=== PATIENT | female | born 1990 | race Hispanic/Latino ===

== ENCOUNTER 2022-02-11 09:01 | Emergency (ER) | payer SELFPAY ==
[2022-02-11 10:01] LABS: Urine Blood 2+ (Negative); Urine Glucose Negative (Negative); Urine Protein Negative (Negative); Urine Specific Gravity >=1.030 (1.005-1.030); Urine pH 6.5 (5.0-7.0)
--- NOTE | 2022-02-11 11:45 | RAD REPORT ---
EXAM DESCRIPTION: CT - Stone Protocol - 02/11/2022 11:07 am CLINICAL HISTORY: Flank pain, kidney stone suspected COMPARISON: <Comparisons> TECHNIQUE: Axial 3 mm thick images were obtained without oral or IV contrast. The [id number] span s the entirety of the system including uppermost abdomen and lung bases. All CT scans are performed using dose optimization technique as appropriate and may include automated exposure control or mA/KV adjustment according to patient size. FINDINGS: No hydronephrosis is present and no obstructing ureteral calculi. No suspicious renal mass es. Isodense masses and pyelonephritis are not excluded on a stone protocol CT scan. No significant a drenal finding. No urinary bladder suspicious finding. Lobulated multi fibroid uterus is present. No primary ovarian process seen. Imaged portions of the liver, spleen and pancreas show no suspicious findings on non-contrast imaging . No gallbladder or biliary tree abnormality identified. No suspicious bowel findings. Appendix is normal. Sigmoid colon is redundant with moderate stool volu me. No hernia, mass or bulky lymphadenopathy noted. No free air, free fluid or inflammatory stranding. No significant bony abnormality. IMPRESSION: No hydronephrosis, obstructing calculus or acute finding. Lobulated multi fibroid uterus with no primary ovarian process seen. Follow-up outpatient sonography of the uterus can be obtained as warranted. Isodense masses and pyelonephritis are not excluded on stone protocol technique.
--- NOTE | 2022-02-11 11:49 | ER ---
Nurse's Notes [facility] Name: Laureen Haji Age: 31 yrs Sex: Female : 1990 Arrival Date: 02/11/2022 Time: 09:02 Bed Waiting Private MD: Diagnosis: UTI/ Urinary tract infection, site not specified Presentation: 02/11 09:53 Chief complaint: Patient states: LLQ to left low back pain with burning with urination jl7 x 3 days. Coronavirus screen: At this time, the client does not indicate any symptoms associated with coronavirus-19. Ebola Screen: No symptoms or risks identified at this time. Initial Sepsis Screen: Does the patient meet any 2 criteria? No. Patient's initial sepsis screen is negative. Does the patient have a suspected source of infection? No. Patient's initial sepsis screen is negative. Risk Assessment: Do you want to hurt yourself or someone else? Patient reports no desire to harm self or others. Onset of symptoms was February 09, 2022. 09:53 Method Of Arrival: Ambulatory jl7 09:53 Acuity: CHIDI 3 jl7 Triage Assessment: 09:55 General: Appears in no apparent distress. uncomfortable, Behavior is calm, cooperative, jl7 appropriate for age. Pain: Complains of pain in suprapubic area and left lower quadrant Pain currently is 8 out of 10 on a pain scale. 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 - Social history:: Smoking status: Patient denies any tobacco usage or history of. Vital Signs: 09:53 BP 131 / 109; Pulse 95; Resp 17; Temp 98.4; Pulse Ox 100% on R/A; Weight 99.79 kg; jl7 Height 5 ft. 5 in. (165.10 cm); Pain 10; 09:53 Body Mass Index 36.61 (99.79 kg, 165.10 cm) jl7 ED Course: 09:02 Patient arrived in ED. as 09:16 Claude Hinojosa PA is PHCP. [facility] 09:16 Gus Stephen MD is Attending Physician. [facility] 09:55 Triage completed. jl7 09:55 Arm band placed on right wrist. jl7 11:09 CT Stone Protocol In Process Unspecified. EDMS 12:20 Wilma Pike, RN is Primary Nurse. iw Administered Medications: No medications were administered Outcome: 11:48 Discharge ordered by . m 12:23 Patient left the ED. iw Addendum: 02/14/2022 18:06 Addendum: Culture Results: Positive urine culture. Bacteria is resistant to, has a a5 intermediate sensitivity, or is not tested against prescribed antibiotics. Report given to MARIAM for further evaluation and then to diet clerk for follow up with patient. 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 Signatures: Dispatcher [employer] EDMS Claude Hinojosa PA PA [facility] Shanti Hanson as Wilma Pike, RN RN Valencia Zamora, RN RN aa5 Shabana Rice, RN RN jl7
--- NOTE | 2022-02-11 11:49 | EDPHYS ---
Physician Documentation [facility] Name: Laureen Haji Age: 31 yrs Sex: Female : 1990 Arrival Date: 02/11/2022 Time: 09:02 Bed Waiting Private MD: ED Physician Gus Stephen HPI: 02/11 09:45 This 31 yrs old Female presents to ER via Unassigned with complaints of jmm Urinary Problem, Flank Pain, Fever. 09:45 The patient presents with urinary symptoms. Onset: The symptoms/episode began/occurred jmm gradually. Modifying factors: The symptoms are alleviated by nothing, the symptoms are aggravated by nothing. Associated signs and symptoms: Pertinent positives: nausea. Patient states pain has intensified today. Increased urinary frequency pain, gross hematuria, flank pain. 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 - Social history:: Smoking status: Patient denies any tobacco usage or history of. ROS: 09:45 Cardiovascular: Negative for chest pain, palpitations, and edema, Respiratory: Negative jmm for shortness of breath, cough, wheezing, and pleuritic chest pain. 09:45 Constitutional: Positive for body aches, chills, fever. 09:45 Abdomen/GI: Positive for abdominal pain, nausea. 09:45 Back: Positive for flank pain. 09:45 : Positive for urinary symptoms, flank pain, urinary frequency, small amounts, burning with urination, difficulty urinating. 09:45 All other systems are negative. Exam: 09:45 Constitutional: This is a well developed, well nourished patient who is awake, alert, jmm and in no acute distress. Head/Face: atraumatic. Eyes: EOMI, no conjunctival erythema appreciated ENT: Moist Mucus Membranes Neck: Trachea midline, Supple Chest/axilla: Normal chest wall appearance and motion. Cardiovascular: Regular rate and rhythm. No edema appreciated Respiratory: Normal respirations, no respiratory distress appreciated Abdomen/GI: Non distended, soft Back: Normal ROM Skin: General appearance color normal MS/ Extremity: Moves all extremities, no obvious deformities appreciated, no edema noted to the lower extremities Neuro: Awake and alert Psych: Behavior is normal, Mood is normal, Patient is cooperative and pleasant Vital Signs: 09:53 BP 131 / 109; Pulse 95; Resp 17; Temp 98.4; Pulse Ox 100% on R/A; Weight 99.79 kg; 7 Height 5 ft. 5 in. (165.10 cm); Pain 07/14; 09:53 Body Mass Index 36.61 (99.79 kg, 165.10 cm) 7 MDM: 09:45 Patient medically screened. [facility] 11:46 Data reviewed: vital signs, nurses notes. Counseling: I had a detailed discussion with [facility] the patient and/or guardian regarding: the historical points, exam findings, and any diagnostic results supporting the discharge/admit diagnosis, lab results, radiology results, the need for outpatient follow up, to return to the emergency department if symptoms worsen or persist or if there are any questions or concerns that arise at home. ED course: Patient advised to follow up with pcp and otherwise given strict return precautions. patient understood and agrees with the plan of care. . 02/11 09:47 Order name: Urine Culture [facility] 02/11 10:01 Order name: Urine Dipstick-Ancillary; Complete Time: 10:07 [facility] 02/11 09:47 Order name: Urine Dipstick-Ancillary (obtain specimen); Complete Time: 10:02 [facility] 02/11 09:47 Order name: Urine Test (obtain specimen); Complete Time: 10:02 [facility] 02/11 09:47 Order name: CT Stone Protocol; Complete Time: 11:46 [facility] Administered Medications: No medications were administered Disposition: 13:54 Co-signature as Attending Physician, Gus Stephen MD I agree with the assessment and kdr plan of care. Disposition Summary: 02/11/22 11:48 Discharge Ordered Location: Home [facility] Condition: Stable [facility] Diagnosis - UTI/ Urinary tract infection, site not specified [facility] Followup: [facility] - With: Private Physician - When: 2 - 3 days - Reason: Recheck today's complaints, Continuance of care, Re-evaluation by your physician Discharge Instructions: - Discharge Summary Sheet jmm - Urinary Tract Infection, Adult jmm Forms: - Medication Reconciliation Form jmm - Thank You Letter jmm - Antibiotic Education jmm - Prescription Opioid Use jmm - Work release form iw Prescriptions: - cefpodoxime 200 mg Oral Tablet - take 1 tablet by ORAL route every 12 hours for 10 days with food; 20 tablet; adam Refills: 0, Product Selection Permitted Signatures: Dispatcher [employer] Gus Tucker MD MD kdr Mickail, Joel, PA PA jmm Leal, Jahala, RN RN jl7
[2022-02-11 12:32] VITALS: BP 131/109; TEMP 98.4; O2SAT 100
== END 2022-02-11 12:23 | disposition home or self-care (01) ==
LOC: ER 09:01
DX: N39.0 Urinary tract infection, site not specified (principal); Z87.442 Personal history of urinary calculi
CPT/HCPCS: 74176; 76377; 81003; 87077; 87086; 87088; 87186; 99282

== ENCOUNTER 2022-04-30 17:04 | Emergency (ER) | payer BC ==
[2022-04-30 17:51] LABS: Urine Blood 1+ (Negative); Urine Glucose Negative (Negative); Urine Protein Negative (Negative); Urine Specific Gravity 1.025 (1.005-1.030); Urine pH 6.5 (5.0-7.0)
[2022-04-30 17:59] LABS: Absolute Lymphocytes (CBC) 2.2 K/uL (0.7-4.9); Hematocrit 43.7 % (36.0-45.0); Lymphocytes % 30.6 % (15.3-44.8); MCV 82.7 fL (80-100); MPV 8.1 fL (7.6-11.3); RBC Red Blood Cell Count 5.29 M/uL (3.86-4.86)
[2022-04-30 18:05] LABS: Urine RBC <5 /HPF (None Seen)
[2022-04-30 18:06] LABS: Urine Bacteria Loaded /HPF (<20)
[2022-04-30 18:07] LABS: Urine Specific Gravity/Preg 1.025 (1.005-1.030)
[2022-04-30 18:10] LABS: Albumin 4.1 g/dL (3.4-5.0); Bilirubin Total 0.3 mg/dL (0.2-1.0); Potassium 3.8 mmol/L (3.5-5.1); Protein, Total 8.1 g/dL (6.4-8.2)
[2022-04-30] MEDS ORDERED: MORPHINE 4 MG/ML SYR ONE (18:38)
[2022-04-30] MEDS ORDERED: ONDANSETRON 4 MG/2 ML VIAL ONE (18:38)
--- NOTE | 2022-04-30 19:04 | RAD REPORT ---
EXAM DESCRIPTION: CTAbdomen Pelvis W Contrast - 04/30/2022 6:54 pm CLINICAL HISTORY: Abdominal pain. left side abdomen pain COMPARISON: No comparisons TECHNIQUE: Biphasic CT imaging of the abdomen and pelvis was performed with 100 ml non-ionic IV cont rast. All CT scans are performed using dose optimization technique as appropriate and may include automated exposure control or mA/KV adjustment according to patient size. FINDINGS: The lung bases are clear. The liver, spleen, pancreas, adrenal glands and kidneys are within normal limits. No bowel obstruction, free air, free fluid or abscess. The appendix is normal. No evidence of signi ficant lymphadenopathy. Mild urinary bladder wall thickening suspected. Moderate stool is retained th roughout the colon. No suspicious bony findings. IMPRESSION: No acute intra-abdominal or pelvic finding. Moderate stool is retained throughout the colon. Possible urinary bladder wall thickening. Suggest correlation for possible cystitis.
[2022-04-30] MEDS ORDERED: CEFTRIAXONE 1000 MG/VIAL ONE (19:32)
--- NOTE | 2022-04-30 19:42 | ER ---
Nurse's Notes [facility] Name: Laureen Haji Age: 31 yrs Sex: Female : 1990 Arrival Date: 04/30/2022 Time: 17:08 Bed 23 Private MD: Mariela Holley K Diagnosis: UTI/ Urinary tract infection, site not specified;Abdominal pain, unspecified Presentation: 04/30 17:27 Chief complaint: Patient states: pain started on LLQ and now radiates up under her left iw breast , feels very bloated, has hx of UTI's and H. Pylori, also has been nauseous, symptoms started Thursday night. Coronavirus screen: At this time, the client does not indicate any symptoms associated with coronavirus-19. Ebola Screen: Patient negative for fever greater than or equal to 101.5 degrees Fahrenheit, and additional compatible Ebola Virus Disease symptoms Patient denies exposure to infectious person. Patient denies travel to an Ebola-affected area in the 21 days before illness onset. No symptoms or risks identified at this time. Initial Sepsis Screen: Does the patient meet any 2 criteria? No. Patient's initial sepsis screen is negative. Does the patient have a suspected source of infection? No. Patient's initial sepsis screen is negative. Risk Assessment: Do you want to hurt yourself or someone else? Patient reports no desire to harm self or others. Onset of symptoms was April 27, 2022. 17:27 Method Of Arrival: Ambulatory iw 17:27 Acuity: CHIDI 3 iw Historical: - Allergies: 17:29 No Known Allergies; iw - PMHx: 17:29 Hydrocephalus; Kidney stones; UTI; iw - PSHx: 17:29 Adenoid excision; section; Tonsillectomy; iw 17:30 tubal ligation; iw - Immunization history:: Adult Immunizations up to date. Screenin:29 Abuse screen: Denies threats or abuse. Denies injuries from another. Nutritional lg3 screening: No deficits noted. Tuberculosis screening: No symptoms or risk factors identified. Fall Risk None identified. Assessment: 19:29 General: Appears in no apparent distress. comfortable, Behavior is calm, cooperative. lg3 Pain: Complains of pain in anterior aspect of left lateral abdomen, left upper quadrant and left lower quadrant. Neuro: No deficits noted. Level of Consciousness is awake, alert, obeys commands, Oriented to person, place, time, situation. Cardiovascular: No deficits noted. Denies chest pain, shortness of breath, Capillary refill < 3 seconds Clubbing of nail beds is absent JVD is absent Patient's skin is warm and dry. Respiratory: No deficits noted. Airway is patent Trachea midline Respiratory effort is even, unlabored, Respiratory pattern is regular, symmetrical, Breath sounds are clear bilaterally. GI: Abdomen is round non-distended, obese, Bowel sounds present X 4 quads. Abd is soft X 4 quads Abdomen is tender to palpation in left upper quadrant and left lower quadrant. : No deficits noted. Reports strong urine odor. EENT: No deficits noted. No signs and/or symptoms were reported regarding the EENT system. Derm: No deficits noted. No signs and/or symptoms reported regarding the dermatologic system. Skin is intact, is healthy with good turgor, Skin is dry, Skin temperature is warm. Musculoskeletal: No deficits noted. No signs and/or symptoms reported regarding the musculoskeletal system. Circulation, motion, and sensation intact. Range of motion: intact in all extremities. Vital Signs: 17:27 BP 127 / 85; Pulse 81; Resp 16; Temp 98.5; Pulse Ox 98% on R/A; iw 20:06 BP 124 / 84; Pulse 88; Resp 17 S; Pulse Ox 99% on R/A; lg3 ED Course: 17:08 Patient arrived in ED. am2 17:08 Mariela Holley MD is Private Physician. am2 17:11 [facility] cp 17:11 Deandre Lopez MD is Attending Physician. cp 17:29 Triage completed. iw 17:30 Arm band placed on. iw 17:38 Initial lab(s) drawn, by sc, sent to lab. Inserted saline lock: 20 gauge in left 3 antecubital area, using aseptic technique. Blood collected. 17:50 Urine Microscopic Only Sent. 3 18:23 Lino Soto, RN is Primary Nurse. jd3 18:56 CT Abd/Pelvis - IV Contrast Only In Process Unspecified. EDMS 19:24 Primary Nurse role handed off by Lino Soto RN mw2 19:29 Patient has correct armband on for positive identification. Bed in low position. Call lg3 light in reach. Side rails up X 1. Client placed on continuous cardiac and pulse oximetry monitoring. NIBP monitoring applied. Door closed. Noise minimized. Warm blanket given. Family accompanied patient. 20:06 Lily Aleman, RN is Primary Nurse. lg3 20:32 No provider procedures requiring assistance completed. IV discontinued, intact, lg3 bleeding controlled, No redness/swelling at site. Pressure dressing applied. Administered Medications: 18:43 Drug: Zofran (Ondansetron) 4 mg Route: IVP; Site: left antecubital; ha1 19:06 Follow up: Response: No adverse reaction ha1 18:43 Drug: morphine 4 mg Route: IVP; Infused Over: 4 mins; Site: left antecubital; ha1 19:06 Follow up: Response: No adverse reaction; Pain is decreased ha1 19:29 Drug: Rocephin - (cefTRIAXone) 1 grams Route: IVPB; Infused Over: 30 mins; Site: left lg3 antecubital; 19:29 Follow up: Response: No adverse reaction; IV Status: Completed infusion; IV Intake: [id number] Medication: 20:32 VIS not applicable for this client. lg3 Intake: 19:29 IV: 10ml; Total: 10ml. lg3 Outcome: 19:41 Discharge ordered by . cp 20:32 Discharged to home ambulatory, with significant other. lg3 20:32 Condition: stable 20:32 Discharge instructions given to patient, family, Instructed on discharge instructions, Demonstrated understanding of instructions, follow-up care, medications, Prescriptions given X 3. 20:49 Patient left the ED. lg3 Addendum: 05/03/2022 09:31 Addendum: Culture Results: Positive urine culture. No further action required. Bacteria e b sensitive to prescribed antibiotic. Signatures: Dispatcher [employer] EDMS Wilma Pike RN RN iw Page, Corey, PA PA cp Moreno, Amanda Anastasia Kay 3 Lino Soto RN RN jd3 Syed Vick 2 Velvet Valverde Lacie, RN RN lg3 Isabel Packer RN RN ha1
--- NOTE | 2022-04-30 19:42 | EDPHYS ---
Physician Documentation [facility] Name: Laureen Haji Age: 31 yrs Sex: Female : 1990 Arrival Date: 04/30/2022 Time: 17:08 Bed 23 Private MD: Mariela Holley K ED Physician Deandre Lopez HPI: 04/30 17:35 This 31 yrs old Female presents to ER via Ambulatory with complaints of Flank cp Pain, Abdominal Pain - LLQ. 17:35 The patient presents with abdominal pain in the left lower quadrant. Onset: The cp symptoms/episode began/occurred 4 day(s) ago. The symptoms radiate to left back, the left flank, left upper abdomen. Associated signs and symptoms: Pertinent positives: dysuria, urine odor, Pertinent negatives: fever. The symptoms are described as fullness. Historical: - Allergies: 17:29 No Known Allergies; iw - PMHx: 17:29 Hydrocephalus; Kidney stones; UTI; iw - PSHx: 17:29 Adenoid excision; section; Tonsillectomy; iw 17:30 tubal ligation; iw - Immunization history:: Adult Immunizations up to date. ROS: 17:40 Constitutional: Negative for body aches, chills, fever, poor PO intake. cp 17:40 Eyes: Negative for injury, pain, redness, and discharge. cp 17:40 ENT: Negative for drainage from ear(s), ear pain, sore throat, difficulty swallowing, difficulty handling secretions. 17:40 Cardiovascular: Negative for edema, palpitations. 17:40 Respiratory: Negative for cough, shortness of breath, wheezing. 17:40 Abdomen/GI: Positive for abdominal pain, nausea, of the left lower quadrant and left upper quadrant, Negative for vomiting, diarrhea, constipation, anorexia. 17:40 Back: Negative for injury or acute deformity, decreased range of motion. 17:40 Neuro: Negative for altered mental status, dizziness, headache, numbness, syncope, weakness. 17:40 All other systems are negative. Exam: 17:45 Constitutional: The patient appears in no acute distress, alert, awake, non-toxic, well cp developed, well nourished, obese. 17:45 Head/Face: Normocephalic, atraumatic. cp 17:45 Eyes: Periorbital structures: appear normal, Conjunctiva: normal, no exudate, no injection, Sclera: no appreciated abnormality, Lids and lashes: appear normal, bilaterally. 17:45 ENT: External ear(s): are unremarkable, Nose: is normal, Mouth: Lips: moist, Oral mucosa: moist, Posterior pharynx: Airway: no evidence of obstruction, patent. 17:45 Chest/axilla: Inspection: normal, Palpation: is normal, no crepitus, no tenderness. 17:45 Cardiovascular: Rate: normal, Rhythm: regular. 17:45 Respiratory: the patient does not display signs of respiratory distress, Respirations: normal, no use of accessory muscles, no retractions, labored breathing, is not present, Breath sounds: are clear throughout, no decreased breath sounds, no stridor, no wheezing. 17:45 Abdomen/GI: Inspection: obese Bowel sounds: active, all quadrants, Palpation: soft, in all quadrants, moderate abdominal tenderness, in the anterior aspect of left lateral abdomen, left upper quadrant and left lower quadrant, rebound tenderness, is not appreciated, involuntary guarding, is not appreciated. 17:45 Back: CVA tenderness, is absent. 17:45 Skin: no rash present. 17:45 Neuro: Orientation: to person, place \T\ time. Mentation: is normal, Motor: moves all fours, strength is normal, Sensation: is normal, Gait: is steady, at a normal pace, without difficulty. Vital Signs: 17:27 BP 127 / 85; Pulse 81; Resp 16; Temp 98.5; Pulse Ox 98% on R/A; iw 20:06 BP 124 / 84; Pulse 88; Resp 17 S; Pulse Ox 99% on R/A; lg3 MDM: 18:18 Patient medically screened. cp 19:40 Data reviewed: vital signs, nurses notes, lab test result(s), radiologic studies, CT cp scan. 19:40 Differential diagnosis: diverticulitis, Ovarian Torsion, Pelvic Inflammatory Disease, cp Pyelonephritis, Ureterolithiasis, urinary tract infection. Counseling: I had a detailed discussion with the patient and/or guardian regarding: the historical points, exam findings, and any diagnostic results supporting the discharge/admit diagnosis, lab results, radiology results, the need for outpatient follow up, a family practitioner, to return to the emergency department if symptoms worsen or persist or if there are any questions or concerns that arise at home. 04/30 17:30 Order name: CBC with Diff; Complete Time: 19:20 04/30 19:20 Interpretation: Normal except: RBC 5.29. 04/30 17:30 Order name: CMP; Complete Time: 19:20 04/30 19:20 Interpretation: Normal except: AST 11; GLOB 4.0; A/G 1.0. 04/30 17:30 Order name: Lipase; Complete Time: 19:20 04/30 17:37 Order name: Urine Microscopic Only; Complete Time: 19:20 04/30 17:51 Order name: Urine --Ancillary (enter results); Complete Time: 19:20 dh3 04/30 17:51 Order name: Urine Dipstick-Ancillary; Complete Time: 19:20 [facility] 04/30 19:39 Interpretation: Normal except: UBLD 1+; UNIT Positive; UESTR 1+. 04/30 17:30 Order name: IV Saline Lock; Complete Time: 17:43 04/30 17:30 Order name: Labs collected and sent; Complete Time: 17:43 04/30 17:30 Order name: Urine Dipstick-Ancillary (obtain specimen); Complete Time: 17:50 04/30 17:37 Order name: CT Abd/Pelvis - IV Contrast Only; Complete Time: 19:20 04/30 18:08 Order name: Urine Culture [facility] 04/30 17:30 Order name: Urine Test (obtain specimen); Complete Time: 17:50 04/30 19:33 Order name: PO challenge; Complete Time: 20:06 cp Administered Medications: 18:43 Drug: Zofran (Ondansetron) 4 mg Route: IVP; Site: left antecubital; ha1 19:06 Follow up: Response: No adverse reaction ha1 18:43 Drug: morphine 4 mg Route: IVP; Infused Over: 4 mins; Site: left antecubital; ha1 19:06 Follow up: Response: No adverse reaction; Pain is decreased ha1 19:29 Drug: Rocephin - (cefTRIAXone) 1 grams Route: IVPB; Infused Over: 30 mins; Site: left lg3 antecubital; 19:29 Follow up: Response: No adverse reaction; IV Status: Completed infusion; IV Intake: [id number] Disposition Summary: 04/30/22 19:41 Discharge Ordered Location: Home cp Problem: new cp Symptoms: have improved cp Condition: Stable cp Diagnosis - UTI/ Urinary tract infection, site not specified cp - Abdominal pain, unspecified cp Followup: cp - With: Private Physician - When: 2 - 3 days - Reason: Worsening of condition Discharge Instructions: - Discharge Summary Sheet cp - Abdominal Pain, Adult cp - Urinary Tract Infection, Adult cp Forms: - Medication Reconciliation Form cp - Thank You Letter cp - Antibiotic Education cp - Prescription Opioid Use cp - Work release form lg3 - Family Work Release lg3 Prescriptions: - Pyridium 200 mg Oral Tablet - take 1 tablet by ORAL route every 8 hours for 2 days; 6 tablet; Refills: 0, cp Product Selection Permitted - Zofran 4 mg Oral Tablet - take 1 tablet by ORAL route every 12 hours As needed; 10 tablet; Refills: 0, cp Product Selection Permitted - cefpodoxime 200 mg Oral Tablet - take 1 tablet by ORAL route every 12 hours for 7 days with food; 14 tablet; cp Refills: 0, Product Selection Permitted Signatures: Dispatcher [employer] Wilma Mccoy RN RN iw Deandre Mitchell PA PA cp Lily Aleman RN RN lg3 Isabel Packer RN RN ha1 Corrections: (The following items were deleted from the chart) 17:36 17:34 This 31 yrs old Female presents to ER via Ambulatory with complaints of cp Flank Pain, Abdominal Pain - LLQ. cp 19:20 19:20 Normal except: AST 11. cp cp
[2022-04-30 22:22] VITALS: TEMP 98.5
[2022-04-30 22:24] VITALS: BP 124/84; O2SAT 99
== END 2022-04-30 20:49 | disposition home or self-care (01) ==
LOC: ER 17:04
DX: N39.0 Urinary tract infection, site not specified (principal); R10.32 Left lower quadrant pain; R30.0 Dysuria; N20.0 Calculus of kidney
CPT/HCPCS: 36415; 74177; 80053; 81003; 81015; 81025; 83690; 85025; 87077; 87086; 87088; 87186; 96374; 96375; 99284; J2405; Q9967

== ENCOUNTER 2023-02-09 17:02 | Emergency (ER) | payer BC ==
--- OUTSIDE RECORDS SUMMARY | 2023-02-09 17:05 | XMS REPORT | Continuity of Care Document ---
:1990 Author Organization [facility] t Address [address] [place] [address] [place] [address] Care Team Providers Name Role Phone PCP, PATIENT DOES NOT HAVE A Primary Care Physician Unavaila Ghassan Bradley Attending Clinician GHASSAN AMOR Attending Clinician Unavailable GHASSAN AMOR Admitting Clinician Unavailable Payers Payer Name Policy Type Policy Number Effective Date Expiration Date S ource Problems Condition Condition Condition Status Onset Resolution Last Treating Co mments Source Name Details Category Date Date Treatment Clinician Date No known No known Disease Unive rs active active ity of problems problems [facility] Allergies, Adverse Reactions, Alerts Allergy Allergy Status Severity Reaction(s) Onset Inactive Treating Comm ents Source Name Type Date Date Clinician NO KNOWN Drug Active Univers ALLERGIE Class ity of S [facility] Social History Social Habit Start Date Stop Date Quantity Comments Source Exposure to 2022-07-20 2022-07-30 Not sure [facility] SARS-CoV-2 (event) 00:00:00 08:45:00 Medica l Branch [facility] [birth year] [facility] [place] [facility] Medical Branch Smoking Status Start Date Stop Date Source Tobacco smoking consumption Univ [facility] unknown Branch Medications Ordered Filled Start Stop Current Ordering Indication Dosage Frequency Signature Comments Components Source Medication Medication Date Date Medication? Clinician (SIG) Name Name NaCl 0.9% 2021-10 1000mL at 999 Uni vers (NS) bolus 0-26 10-26 mL/hr, ity of infusion 14:45: 15:30 1,000 mL, Barrera as 1,000 mL 00 :00 IV Medical Infusion, Branch ONCE, 1 dose, On Thu07/30/22 at 0945, MICHAEL ibuprofen 2021-10 600mg 600 mg, Uni vers (IBU) 07-30 Oral, ity of tablet 600 13:45: 13:50 ONCE, 1 Barrera as mg 00 :00 dose, On Thu Branch 07/30/22 at 0845, MICHAEL oseltamivir 2021-10- No [id number] 75mg Take 1 Univers 75 mg 08-05 capsule by ity of capsule 00:00: 04:59 mouth in [place] 00 :00 the Medical morning Branch and 1 capsule in the evening. Do all this for 5 days. Vital Signs Vital Name Observation Time Observation Value Comments Source Systolic blood 2022-07-30 13:47:50 113 mm[Hg[facility] Diastolic blood 2022-07-30 13:47:50 82 mm[Hg] [facility] 2022-07-30 13:47:50 113 /min [facility] Body temperature 2022-07-30 13:47:50 37 [facility] Respiratory rate 2022-07-30 13:47:50 18 /min [facility] Body weight 2022-07-30 13:29:00 99.791 kg [facility] Oxygen saturation in 2022-07-30 13:29:00 98 /min [facility] Arterial blood by [facility] Pulse oximetry [place] Procedures Procedure Date / Time Performed Performing Clinician Sourc e LIPASE 2022-07-30 14:12:00 Ghassan Amor [facility] COMP. METABOLIC PANEL 2022-07-30 14:12:00 [id number] CBC WITH DIFF 2022-07-30 14:12:00 Ghassan Amor [facility] URINALYSIS 2022-07-30 14:12:00 Ghassan Amor [facility] POCT TEST 2022-07-30 14:11:00 Ghassan Amor [facility] XR CHEST 2 VW 2022-07-30 13:57:45 Ghassan Amor [facility] RAPID STREP SCREEN FOR 2022-07-30 13:48:00 Ghassan Amor [facility] GROUP A [facility] RAPID INFLUENZA A/B 2022-07-30 13:48:00 Ghassan Amor [facility] COVID-19 (ID NOW RAPID 2022-07-30 13:48:[address] [facility] TESTING) [facility] NOTICE OF PRIVACY 2022-07-30 13:19:48 Doctor Unassigned, No [facility] PRACTICES Name Medical [place] Encounters Start End Encounter Admission Attending Care Care Encounter Source Date/Time Date/Time Type Type Clinicians Facility Department ID 2022-07-30 2022-07-30 Emergency [facility] [id number] Univers 08:31:00 11:10:00 Ghassan Hernández [place] [id number] [facility] [id number] [facility] [id number] [facility] 084 Branch 2022-07-30 2022-07-30 Emergency [facility] ERT [id number] Univers 08:31:00 11:10:00 GHASSAN [facility] Results Test Description Test Time Test Comments Results Result Comments Source POCT TEST 2022-07-30 14:11:00 Test Item Value Reference Range Interpretation Comme nts POCT PREG (test code = 1605) negative On board controls acceptable with C Line (test code = 3574) yes POCT PREG LOT # (test code = 3575) [id number] POCT PREG TEST DATE (test code = 3576) 12/03/2023 Lab Interpretation (test code = 78331-9) Normal [facility]
[2023-02-09] MEDS ORDERED: NA CHLORIDE 0.9% 1,000 ML ONE (18:42)
[2023-02-09] MEDS ORDERED: KETOROLAC 30 MG/ML INJ ONE (18:42)
[2023-02-09] MEDS ORDERED: ONDANSETRON 4 MG/2 ML VIAL ONE (18:42)
[2023-02-09 19:25] LABS: Absolute Lymphocytes (CBC) 1.1 K/uL (0.7-4.9); Lymphocytes % 13.8 % (15.3-44.8); MCV 83.9 fL (80-100); MPV 7.6 fL (7.6-11.3); RBC Red Blood Cell Count 5.01 M/uL (3.86-4.86)
--- NOTE | 2023-02-09 20:11 | RAD REPORT ---
EXAM DESCRIPTION: US - Abdomen Exam Limited - 02/09/2023 7:29 pm CLINICAL HISTORY: ABD PAIN COMPARISON: Abdomen Pelvis W Contrast dated 04/30/2022 TECHNIQUE: Sonographic grayscale and color flow images of the right upper abdominal quadrant were obtained. FINDINGS: The gallbladder demonstrates no convincing evidence of gallstones. Mildly echogenic nonsha dowing material near the neck could relate to a fold in the gallbladder wall or small volume sludge. No pericholecystic fluid or gallbladder wall thickening. The common bile duct is normal measuring 3 m m. The liver demonstrates no findings of intrahepatic biliary dilatation. IMPRESSION: No evidence of cholelithiasis or acute cholecystitis on ultrasound. Possible small volum e sludge near the neck of the gallbladder.
[2023-02-09 20:16] LABS: Albumin 3.8 g/dL (3.4-5.0); Bilirubin Total 0.4 mg/dL (0.2-1.0); Potassium 4.3 mEq/L (3.5-5.1); Protein, Total 7.9 g/dL (6.4-8.2)
[2023-02-09 20:19] LABS: Specific Gravity 1.029 (1.005-1.030)
[2023-02-09 20:20] LABS: Specific Gravity 1.029 (1.005-1.030); Urine Bacteria <20 /HPF (<20); Urine Bilirubin NEGATIVE (Negative); Urine Blood 1+ (Negative); Urine Clarity Turbid (Clear); Urine Color Yellow (Yellow); Urine Glucose NEGATIVE (Negative); Urine Mucus 3+ /HPF (None Seen); Urine Protein TRACE (Negative); Urine RBC 21-50 /HPF (None Seen); Urine Urobilinogen Normal (Normal); Urine WBC Clump Rare /HPF (None Seen)
--- NOTE | 2023-02-09 21:09 | RAD REPORT ---
EXAM DESCRIPTION: CT - Abdomen Pelvis W Contrast - 02/09/2023 8:35 pm CLINICAL HISTORY: ABD PAIN COMPARISON: Abdomen Pelvis W Contrast dated 04/30/2022 TECHNIQUE: Thin cut axial CT imaging of the abdomen and pelvis was performed following intravenous a dministration of 100 mL Isovue 300. Multiplanar reformats were generated and reviewed. All CT scans are performed using dose optimization technique as appropriate and may include automated exposure control or mA/KV adjustment according to patient size. FINDINGS: No suspicious findings in the lung bases. The liver, spleen, and pancreas show no suspicious findings. Gallbladder and biliary tree are also wi thout suspicious finding. Symmetric renal function is seen with no hydronephrosis or suspicious renal mass. Small cysts in the upper pole left kidney and left liver lobe are stable. No dilated bowel loops or bowel wall thickening. Fluid accumulation within nondistended ascending and transverse colon, nonspecific. No free air, free fluid or inflammatory stranding. No hernia, mass or bulky lymphadenopathy. The urinary bladder is without significant finding. Uterus again demonstrates bulky contour near the fundus, suggestive of underlying fibroids. No suspicious bony findings. IMPRESSION: No acute intra-abdominal process. Nonspecific fluid accumulation within nondistended pr oximal colon, could relate to mild colitis.
[2023-02-09] MEDS ORDERED: DICYCLOMINE HCL 10 MG CAP ONE (21:36)
--- NOTE | 2023-02-09 22:35 | EDPHYS ---
Physician Documentation [facility] Name: Laureen Haji Age: 32 yrs Sex: Female : 1990 Arrival Date: 02/09/2023 Time: 17:02 Bed 10 Private MD: BYRON Physician Deandre Lopez HPI: 02/09 19:04 This 32 yrs old Female presents to ER via Wheelchair with complaints of kb Abdominal Pain, Back Pain, Nausea. 19:04 The patient presents with abdominal pain in the right upper quadrant, right lower kb quadrant. Onset: The symptoms/episode began/occurred this morning. The symptoms do not radiate. Associated signs and symptoms: Pertinent positives: nausea. The symptoms are described as constant. Modifying factors: The symptoms are alleviated by nothing, the symptoms are aggravated by pressure. Severity of pain: At its worst the pain was moderate in the emergency department the pain is unchanged. The patient has not experienced similar symptoms in the past. The patient has not recently seen a physician. 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 - Social history:: Smoking status: Patient denies any tobacco usage or history of. ROS: 19:03 Respiratory: Negative for shortness of breath, cough, wheezing, and pleuritic chest kb pain. 19:03 Abdomen/GI: Positive for abdominal pain, nausea. 19:03 All other systems are negative. 19:04 Constitutional: Positive for chills. kb 19:04 Neuro: Positive for dizziness. Exam: 19:04 Constitutional: This is a well developed, well nourished patient who is awake, alert, kb and in no acute distress. Head/Face: Normocephalic, atraumatic. ENT: Moist Mucous membranes Cardiovascular: Regular rate and rhythm with a normal S1 and S2. No gallops, murmurs, or rubs. No pulse deficits. Respiratory: Respirations even and unlabored. No increased work of breathing. Talking in full sentences Skin: Warm, dry with normal turgor. Normal color. MS/ Extremity: Pulses equal, no cyanosis. Neurovascular intact. Full, normal range of motion. Neuro: Awake and alert, GCS 15, oriented to person, place, time, and situation. Moves all extremities. Normal gait. 19:04 Abdomen/GI: Inspection: abdomen appears normal, Bowel sounds: normal, in all quadrants, Palpation: soft, in all quadrants, moderate abdominal tenderness, in the right upper quadrant and right lower quadrant. Vital Signs: 17:26 BP 145 / 107; Pulse 106; Resp 17; Temp 99; Pulse Ox 96% ; Weight 102.06 kg; Height 5 ap3 ft. 5 in. ; Pain 10/10; 21:24 BP 111 / 79; Pulse 84; Resp 16; Pulse Ox 99% on R/A; mb9 22:53 BP 116 / 84; Pulse 72; Resp 17; Pulse Ox 99% on R/A; mb9 17:26 Body Mass Index 37.44 (102.06 kg, 165.1 cm) ap3 17:26 Pain Scale: Adult ap3 MDM: 17:28 Patient medically screened. kb 19:04 Differential diagnosis: appendicitis, cholecystitis, Cholelithiasis, gastritis. Data kb reviewed: vital signs, nurses notes. 22:34 Counseling: I had a detailed discussion with the patient and/or guardian regarding: the kb historical points, exam findings, and any diagnostic results supporting the discharge/admit diagnosis, lab results, radiology results, the need for outpatient follow up, a family practitioner, a manager statistics, to return to the emergency department if symptoms worsen or persist or if there are any questions or concerns that arise at home. 02/09 17:50 Order name: CBC with Diff; Complete Time: 19:37 kb 02/09 17:50 Order name: CMP; Complete Time: 20:18 kb 02/09 17:50 Order name: Lipase; Complete Time: 20:18 kb 02/09 17:50 Order name: Test, Urine; Complete Time: 20:19 kb 02/09 17:50 Order name: Urinalysis w/ reflexes; Complete Time: 20:22 kb 02/09 17:50 Order name: CT Abd/Pelvis - IV Contrast Only; Complete Time: 21:27 kb 02/09 18:57 Order name: Abdomen Exam Limited; Complete Time: 20:13 EDMS 02/09 17:50 Order name: IV Saline Lock; Complete Time: 19:18 kb 02/09 17:50 Order name: Labs collected and sent; Complete Time: 19:18 kb 02/09 21:28 Order name: PO challenge; Complete Time: 21:31 kb Administered Medications: 19:25 Drug: NS 0.9% IV 1000 ml Route: IV; Rate: 1 bolus; Site: left antecubital; mb9 22:53 Follow up: Response: No adverse reaction; IV Status: Completed infusion mb9 19:28 Drug: Ondansetron IVP 4 mg Route: IVP; Site: left antecubital; mb9 22:53 Follow up: Response: No adverse reaction mb9 19:30 Drug: TORadol - Ketorolac IVP 15 mg Route: IVP; Site: left antecubital; mb9 22:53 Follow up: Response: No adverse reaction mb9 21:32 Drug: Dicyclomine PO 20 mg Route: PO; mb9 22:44 Follow up: Response: No adverse reaction mb9 Disposition Summary: 02/09/23 22:35 Discharge Ordered Location: Home kb Condition: Stable kb Diagnosis - Abdominal pain, Generalized kb Followup: kb - With: Emergency Department - When: As needed - Reason: Worsening of condition Followup: kb - With: Private Physician - When: 2 - 3 days - Reason: Recheck today's complaints, Continuance of care, Re-evaluation by your physician Discharge Instructions: - Discharge Summary Sheet kb - Abdominal Pain, Adult, [id number] kb Forms: - Medication Reconciliation Form kb - Thank You Letter kb - Antibiotic Education kb - Prescription Opioid Use kb - Work release form mb9 Prescriptions: - Zofran 4 mg Oral Tablet - take 1 tablet by ORAL route every 6 hours As needed; 20 tablet; Refills: 0, kb Product Selection Permitted - dicyclomine 20 mg Oral Tablet - take 1 tablet by ORAL route 4 times per day As needed; 20 tablet; Refills: 0, kb Product Selection Permitted Signatures: Dispatcher [employer] EDOR Elinor Mims, Linda Mendez RN RN ap3 Thais Oglesby RN RN mb9 Corrections: (The following items were deleted from the chart) 18:56 17:50 Abdomen Limited+US.RAD.BRZ ordered. EDMS EDMS 19:04 19:03 Constitutional: Negative for fever, chills, and weight loss, kb kb
--- NOTE | 2023-02-09 22:35 | ER ---
Nurse's Notes [facility] Name: Laureen Haji Age: 32 yrs Sex: Female : 1990 Arrival Date: 02/09/2023 Time: 17:02 Bed 10 Private MD: Diagnosis: Abdominal pain, Generalized Presentation: 02/09 17:26 Chief complaint: Patient states: she is having right sided abdominal pain, nausea, hot ap3 sweats, cold chills, dizziness, metallic taste in her mouth and weakness that started at approx 0700 this morning. Coronavirus screen: At this time, the client does not indicate any symptoms associated with coronavirus-19. Ebola Screen: No symptoms or risks identified at this time. Initial Sepsis Screen: Does the patient meet any 2 criteria? HR > 90 bpm. Does the patient have a suspected source of infection? Yes: Acute abdominal pain. Risk Assessment: Do you want to hurt yourself or someone else? Patient reports no desire to harm self or others. Onset of symptoms was February 09, 2023 at 07:00. 17:26 Method Of Arrival: Wheelchair ap3 17:26 Acuity: CHIDI 3 ap3 Triage Assessment: 17:28 General: Appears uncomfortable, Behavior is cooperative, appropriate for age. Pain: ap3 Complains of pain in right upper quadrant and right lower quadrant Pain currently is 10 out of 10 on a pain scale. Pain began 0700 this morning. Neuro: Level of Consciousness is awake, alert, obeys commands, Oriented to person, place, time, situation. Cardiovascular: Patient's skin is warm and dry. Respiratory: Airway is patent Respiratory effort is even, unlabored, Respiratory pattern is regular, symmetrical. GI: Reports lower abdominal pain, upper abdominal pain, nausea. 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 - Social history:: Smoking status: Patient denies any tobacco usage or history of. Screenin:29 [facility] ED Fall Risk Assessment (Adult) History of falling in the last 3 months, ap3 including since admission No falls in past 3 months (0 pts). Abuse screen: Denies threats or abuse. Nutritional screening: No deficits noted. Tuberculosis screening: No symptoms or risk factors identified. Assessment: 17:30 GI: Abdomen is tender to palpation in right upper quadrant and right lower quadrant. ap3 19:52 General: Appears uncomfortable, Behavior is cooperative. Pain: Complains of pain in mb9 abdomen Pain radiates to right lower quadrant and right upper quadrant. Neuro: Level of Consciousness is awake, alert, obeys commands, Oriented to person, place, time, situation, Appropriate for age. Cardiovascular: Patient's skin is warm and dry. Respiratory: Airway is patent Respiratory effort is even, unlabored, Respiratory pattern is regular, symmetrical. GI: Abdomen is round non-distended, Bowel sounds present X 4 quads. Abdomen is tender to palpation in right lower quadrant and right upper quadrant. Derm: Skin is pink, warm \T\ dry. Musculoskeletal: Range of motion: intact in all extremities. 21:00 Reassessment: Patient states symptoms have not improved. General: Appears in no mb9 apparent distress. Behavior is cooperative. Respiratory: Airway is patent Respiratory effort is even, unlabored, Respiratory pattern is regular, symmetrical. Vital Signs: 17:26 BP 145 / 107; Pulse 106; Resp 17; Temp 99; Pulse Ox 96% ; Weight 102.06 kg; Height 5 ap3 ft. 5 in. ; Pain 10/10; 21:24 BP 111 / 79; Pulse 84; Resp 16; Pulse Ox 99% on R/A; mb9 22:53 BP 116 / 84; Pulse 72; Resp 17; Pulse Ox 99% on R/A; mb9 17:26 Body Mass Index 37.44 (102.06 kg, 165.1 cm) ap3 17:26 Pain Scale: Adult ap3 ED Course: 17:05 Patient arrived in ED. mr 17:17 Elinor Mims [facility]-C [facility]. kb 17:17 Deandre Lopez MD is Attending Physician. kb 17:27 Triage completed. ap3 17:29 Arm band placed on right wrist. ap3 17:57 Radiology exam delayed due to lab results not completed at this time. (BUN/Creatinine) jg10 test not completed at this time. IV insertion attempt and/or patient not having appropriate IV at this time. 18:31 Thais Oglesby, RN is Primary Nurse. mb9 18:47 No provider procedures requiring assistance completed. mb9 19:18 CBC with Diff Sent. bc6 19:18 CMP Sent. bc6 19:18 Lipase Sent. bc6 19:18 Initial lab(s) drawn, by me, sent to lab. Inserted saline lock: 20 gauge in left bc6 antecubital area, using aseptic technique. 19:30 Abdomen Exam Limited In Process Unspecified. EDMS 19:39 Placed in gown. Bed in low position. Call light in reach. Side rails up X 1. Client mb9 placed on continuous cardiac and pulse oximetry monitoring. NIBP monitoring applied. 20:36 CT Abd/Pelvis - IV Contrast Only In Process Unspecified. EDMS 22:54 IV discontinued, intact, bleeding controlled, No redness/swelling at site. Pressure mb9 dressing applied. Administered Medications: 19:25 Drug: NS 0.9% IV 1000 ml Route: IV; Rate: 1 bolus; Site: left antecubital; mb9 22:53 Follow up: Response: No adverse reaction; IV Status: Completed infusion mb9 19:28 Drug: Ondansetron IVP 4 mg Route: IVP; Site: left antecubital; mb9 22:53 Follow up: Response: No adverse reaction mb9 19:30 Drug: TORadol - Ketorolac IVP 15 mg Route: IVP; Site: left antecubital; mb9 22:53 Follow up: Response: No adverse reaction mb9 21:32 Drug: Dicyclomine PO 20 mg Route: PO; mb9 22:44 Follow up: Response: No adverse reaction mb9 Medication: 19:39 VIS not applicable for this client. mb9 Outcome: 22:35 Discharge ordered by . kb 22:53 Discharged to home ambulatory. mb9 22:53 Condition: stable 22:53 Discharge instructions given to patient, Instructed on discharge instructions, follow up and referral plans. Demonstrated understanding of instructions, follow-up care, medications, Prescriptions given X 2. 22:54 Patient left the ED. mb9 Signatures: Dispatcher [employer] EDGA Elinor Mims, ROSSY MAXWELL-Thais Yen Amanda, RN RN ap3 Alexandra [id number] Thais Oglesby Beth, RN RN mb9 Michelle Frank bc6 Corrections: (The following items were deleted from the chart) 18:56 18:53 In radiology for Abdomen Limited+US.TABATHA. EDMS EDMS
[2023-02-09 23:31] VITALS: TEMP 99
[2023-02-09 23:36] VITALS: O2SAT 99
[2023-02-09 23:38] VITALS: BP 111/79
== END 2023-02-09 22:54 | disposition home or self-care (01) ==
LOC: ER 17:02
DX: R10.84 Generalized abdominal pain (principal); R11.0 Nausea; Z87.442 Personal history of urinary calculi
CPT/HCPCS: 96361; 85025; 81001; 36415; 81025; 83690; 80053; 74177; 76705; 96375; 96374; 99284; Q9967; J2405; J7030

== ENCOUNTER 2023-03-04 18:45 | Emergency (ER) | payer BC ==
--- OUTSIDE RECORDS SUMMARY | 2023-03-04 18:48 | XMS REPORT | Continuity of Care Document ---
:1990 Author Organization [facility] t Address [address] [place] [address] [place] [id number] Care Team Providers Name Role Phone PCP, [...] rs active active ity of problems problems [facility] Allergies, Adverse Reactions, Alerts Allergy Allergy Status Severity Reaction(s) Onset Inactive Treating Comm ents Source Name Type Date Date Clinician NO KNOWN Drug Active Univers ALLERGIE Class ity of S [facility] Social History Social Habit Start Date Stop Date Quantity Comments Source Exposure to 2022-07-20 2022-07-30 Not sure [facility] SARS-CoV-2 (event) 00:00:00 08:45:00 Medica l Branch Sex Assigned At [birth year] [facility] [place] [facility]00:00 Medical Branch Smoking Status Start Date Stop Date Source Tobacco smoking consumption [facility] unknown Branch Medications Ordered Filled Start Stop [...] 07/30/22 at 0845, MICHAEL oseltamivir 2021-10- No [id number] 75mg Take 1 Univers 75 mg 08-05 capsule by ity of capsule 00:00: 04:59 mouth in [place] 00 :00 the Medical morning Branch and 1 capsule in the evening. Do all this for 5 days. Vital Signs Vital Name Observation Time Observation Value Comments Source Systolic blood 2022-07-30 13:47:50 113 mm[Hg] [facility] Diastolic blood 2022-07-30 13:47:50 82 mm[Hg] [facility] 2022-07-30 13:47:50 113 /min [facility] Body temperature 2022-07-30 13:47:50 37 Sarah [facility] Respiratory rate 2022-07-30 13:47:50 18 /min [facility] Body weight 2022-07-30 13:29:00 99.791 kg [facility] Oxygen saturation in 2022-07-30 13:29:00 98 /min [facility] Arterial blood by [facility] Pulse oximetry [place] Procedures Procedure Date / Time Performed Performing Clinician Sourc e LIPASE 2022-07-30 14:12:00 Ghassan Amor [facility] COMP. METABOLIC PANEL 2022-07-30 14:12:00 [id number] CBC WITH DIFF 2022-07-30 14:12:00 Ghassan Amor [facility] URINALYSIS 2022-07-30 14:12:00 Ghassan Amor [facility] POCT TEST 2022-07-30 14:11:00 Ghassan Amor [facility] XR CHEST 2 VW 2022-07-30 13:57:45 Ghassan Amor [facility] RAPID STREP SCREEN FOR 2022-07-30 13:48:00 Ghassan Amor [facility] GROUP A [facility] RAPID INFLUENZA A/B 2022-07-30 13:48:00 Ghassan Amor [facility] COVID-19 (ID NOW RAPID 2022-07-30 13:48:00 Ghassan Amor [facility] TESTING) [facility] NOTICE OF PRIVACY 2022-07-30 13:19:48 Doctor Unassigned, No [facility] PRACTICES Name Medical [place] Encounters Start End Encounter Admission Attending Care Care Encounter Source Date/Time Date/Time Type Type Clinicians Facility Department ID 2022-07-30 2022-07-30 Emergency [facility] [id number] Univers 08:31:00 11:10:00 Ghassan Hernández [facility] [id number] [facility] [id number] [facility] [id number] [facility] 084 Branch 2022-07-30 2022-07-30 Emergency [facility] [id number] Univers 08:31:00 11:10:00 GHASSAN [facility] Results Test Description Test Time Test Comments Results Result Comments Source POCT TEST 2022-07-30 14:11:00 Test Item Value Reference Range Interpretation Comme nts POCT PREG (test code = 1605) negative On board controls acceptable with C Line (test code = 3574) yes POCT PREG LOT # (test code = 3575) [id number] POCT PREG TEST DATE (test code = 3576) 12/03/2023 Lab Interpretation (test code = 31029-7) Normal [facility]
[2023-03-04] MEDS ORDERED: HYDROCODONE/CHLORPHEN 5 ML/OSYR ONE (20:08)
[2023-03-04 20:51] LABS: SARS-CoV-2 Antigen Rapid Res Negative (Negative)
--- NOTE | 2023-03-04 21:20 | EDPHYS ---
Physician Documentation [facility] Name: Laureen Haji Age: 32 yrs Sex: Female : 1990 Arrival Date: 03/04/2023 Time: 18:45 Bed 9 Private MD: ED Physician Christo Abbott HPI: 03/04 19:15 This 32 yrs old Female presents to ER via Ambulatory with complaints of Flu cp Symptoms. 19:15 The patient or guardian reports cough. cp 19:15 Onset: The symptoms/episode began/occurred 3 day(s) ago. Associated signs and symptoms: cp Pertinent positives: fever, sore throat, temp of 101 today, small amount blood in sputum, Pertinent negatives: diarrhea, vomiting. Severity of symptoms: in the emergency department the symptoms are unchanged despite home interventions. Patient reports having telemedicine visit and being prescribed PCN due to concern for strep throat. Historical: - Allergies: 19:04 No Known Allergies; iw - PMHx: 19:03 Hydrocephalus; Kidney stones; UTI; iw - PSHx: 19:03 Adenoid excision; section; Tonsillectomy; tubal ligation; iw ROS: 19:20 Constitutional: Negative for fever, poor PO intake. cp 19:20 Eyes: Negative for injury, pain, redness, and discharge. cp 19:20 ENT: Positive for sore throat, Negative for drainage from ear(s), ear pain, difficulty swallowing, difficulty handling secretions. 19:20 Respiratory: Positive for cough, productive with small amount of blood, Negative for wheezing. 19:20 Abdomen/GI: Negative for abdominal pain, vomiting, diarrhea, constipation. 19:20 Skin: Negative for rash. 19:20 Neuro: Negative for altered mental status, headache, numbness, weakness. 19:20 All other systems are negative. Exam: 19:25 Constitutional: The patient appears in no acute distress, alert, awake, non-toxic, well cp developed, well nourished, obese. 19:25 Head/Face: Normocephalic, atraumatic. cp 19:25 Eyes: Periorbital structures: appear normal, Conjunctiva: normal, no exudate, no injection, Sclera: no appreciated abnormality, Lids and lashes: appear normal, bilaterally. 19:25 ENT: External ear(s): are unremarkable, Ear canal(s): are normal, clear, TM's: dullness, bilaterally, Nose: is normal, Mouth: Lips: moist, Oral mucosa: moist, Posterior pharynx: Airway: no evidence of obstruction, patent, Tonsils: with erythema, no enlargement, no exudate, erythema, that is mild, exudate, is not appreciated. 19:25 Neck: ROM/movement: is normal, is supple, without pain, no range of motions limitations, no meningismus. 19:25 Chest/axilla: Inspection: normal. 19:25 Cardiovascular: Rate: normal, Rhythm: regular. 19:25 Respiratory: the patient does not display signs of respiratory distress, Respirations: labored breathing, is not present, intercostal retractions, are absent, shallow respirations, are not present, Breath sounds: are clear throughout, no decreased breath sounds, stridor, is not appreciated, wheezing: is not appreciated. 19:25 Abdomen/GI: Exam negative for discomfort, distension, guarding, Inspection: abdomen appears normal. 19:25 Skin: no rash present. Vital Signs: 19:02 BP 149 / 107; Pulse 96; Resp 19; Temp 99.7; Pulse Ox 97% on R/A; Weight 106.59 kg; iw Height 5 ft. 5 in. ; Pain 10/10; 20:07 BP 138 / 84; Pulse 88; Resp 18; Pulse Ox 100% ; mb9 19:02 Body Mass Index 39.11 (106.59 kg, 165.1 cm) iw 19:02 Pain Scale: Adult iw MDM: 19:09 Patient medically screened. 19:15 Differential diagnosis: bronchitis, flu, URI, pneumonia, strep throat. cp 20:45 Independent interpretation of the following test(s) in the Emergency Department X-Ray: My interpretation is chest images negative for focal pneumonia. 21:20 Data reviewed: vital signs, nurses notes, lab test result(s), radiologic studies, plain cp films. 21:20 I considered the following discharge prescriptions or medication management in the emergency department Medications were administered in the Emergency Department. See MAR. Counseling: I had a detailed discussion with the patient and/or guardian regarding: the historical points, exam findings, and any diagnostic results supporting the discharge/admit diagnosis, lab results, radiology results, to return to the emergency department if symptoms worsen or persist or if there are any questions or concerns that arise at home. Response to treatment: the patient's symptoms have mildly improved after treatment, and as a result, I will discharge patient. 03/04 19:10 Order name: SARS RAPID; Complete Time: 21:13 cp 03/04 21:13 Interpretation: Reviewed. cp 03/04 19:10 Order name: Influenza Screen (a \T\ B); Complete Time: 20:44 cp 03/04 20:44 Interpretation: Reviewed. cp 03/04 19:10 Order name: Strep; Complete Time: 20:44 cp 03/04 20:44 Interpretation: Reviewed. cp 03/04 19:10 Order name: RSV; Complete Time: 20:44 cp 03/04 20:27 Order name: Throat Culture EDMS 03/04 19:10 Order name: XRAY Chest Pa And Lat (2 Views) cp 03/04 20:03 Order name: PO challenge; Complete Time: 20:21 cp Administered Medications: 20:06 Drug: Tussionex Pennkinetic ER PO Suspension 5 ml Route: PO; mb9 Disposition Summary: 03/04/23 21:20 Discharge Ordered Location: Home cp Problem: new cp Symptoms: have improved cp Condition: Stable cp Diagnosis - Cough cp - Acute pharyngitis, unspecified cp Followup: cp - With: Private Physician - When: 2 - 3 days - Reason: Worsening of condition Discharge Instructions: - Discharge Summary Sheet cp - Pharyngitis cp - Sore Throat cp - Cool Mist Vaporizer cp - Cough, Adult cp Forms: - Medication Reconciliation Form cp - Thank You Letter cp - Antibiotic Education cp - Prescription Opioid Use cp - Work release form mb9 Prescriptions: - Bromfed DM 2-30-10 mg/5 mL Oral syrup - administer 10 milliliter by ORAL route every 6 hours as needed for cold cp symptoms; 180 milliliter; Refills: 0, Product Selection Permitted - Ibuprofen 800 mg Oral Tablet - take 1 tablet by ORAL route every 8 hours As needed take with food; 30 tablet; cp Refills: 0, Product Selection Permitted - Zithromax Z-Rafat 250 mg Oral Tablet - take 1 tablet by ORAL route as directed for 5 days Day 1 - take two (2) tablets cp one time. Day 2, 3, 4 , 5 take one (1) tablet once daily.; 6 tablet; Refills: 0, Product Selection Permitted Signatures: Dispatcher [employer] Wilma Mccoy, RN RN Deandre Cortes PA PA cp Breneman, Mary Beth, RN RN mb9
--- NOTE | 2023-03-04 21:20 | ER ---
Nurse's Notes [facility] Name: Laureen Haji Age: 32 yrs Sex: Female : 1990 Arrival Date: 03/04/2023 Time: 18:45 Bed 9 Private MD: Diagnosis: Cough;Acute pharyngitis, unspecified Presentation: 03/04 19:02 Chief complaint: Patient states: cough, congestion, fever of 101 at home, throat on iw fire, headaches, chills started Thursday , has been on penicillin, not heling. Coronavirus screen: Client presents with at least one sign or symptom that may indicate coronavirus-19. Ebola Screen: Patient negative for fever greater than or equal to 101.5 degrees Fahrenheit, and additional compatible Ebola Virus Disease symptoms Patient denies exposure to infectious person. Patient denies travel to an Ebola-affected area in the 21 days before illness onset. No symptoms or risks identified at this time. Initial Sepsis Screen: Does the patient meet any 2 criteria? No. Patient's initial sepsis screen is negative. Does the patient have a suspected source of infection? No. Patient's initial sepsis screen is negative. Risk Assessment: Do you want to hurt yourself or someone else? Patient reports no desire to harm self or others. Onset of symptoms was March 02, 2023. 19:02 Method Of Arrival: Ambulatory iw 19:03 Acuity: CHIDI 3 iw Historical: - Allergies: 19:04 No Known Allergies; iw - PMHx: 19:03 Hydrocephalus; Kidney stones; UTI; iw - PSHx: 19:03 Adenoid excision; section; Tonsillectomy; tubal ligation; Assessment: 20:06 Reassessment:. General: Appears ill. Pain: Complains of pain in neck. Neuro: Russ mb9 Agitation-Sedation Scale (RASS): 0 - Alert and Calm Level of Consciousness is awake, alert, obeys commands. Respiratory: Reports shortness of breath cough that is. GI: Reports nausea. EENT: Throat is reddened. Derm: Skin is pink, warm \T\ dry. Musculoskeletal: Range of motion: intact in all extremities. 21:30 Reassessment: No changes from previously documented assessment. Patient and/or family mb9 updated on plan of care and expected duration. Pain level reassessed. Patient is alert, oriented x 3, equal unlabored respirations, skin warm/dry/pink. Vital Signs: 19:02 BP 149 / 107; Pulse 96; Resp 19; Temp 99.7; Pulse Ox 97% on R/A; Weight 106.59 kg; iw Height 5 ft. 5 in. ; Pain 10/10; 20:07 BP 138 / 84; Pulse 88; Resp 18; Pulse Ox 100% ; mb9 19:02 Body Mass Index 39.11 (106.59 kg, 165.1 cm) iw 19:02 Pain Scale: Adult iw ED Course: 18:49 Patient arrived in ED. mr 18:54 Deandre Mitchell PA is PHCP. cp 18:54 Christo Abbott MD is Attending Physician. cp 19:04 Triage completed. iw 19:04 Arm band placed on. iw 19:54 Thais Oglesby, DELON is Primary Nurse. mb9 20:06 RSV Sent. mb9 20:06 SARS RAPID Sent. mb9 20:06 Influenza Screen (a \T\ B) Sent. mb9 20:06 Strep Sent. mb9 20:13 XRAY Chest Pa And Lat (2 Views) In Process Unspecified. EDMS 21:30 No provider procedures requiring assistance completed. Patient did not have IV access mb9 during this emergency room visit. Administered Medications: 20:06 Drug: Tussionex Pennkinetic ER PO Suspension 5 ml Route: PO; mb9 Outcome: 21:20 Discharge ordered by MD. cp 21:30 Discharged to home ambulatory. mb9 21:30 Condition: stable 21:30 Discharge instructions given to patient, Instructed on discharge instructions, follow up and referral plans. Demonstrated understanding of instructions, follow-up care, medications, Prescriptions given X 2. 21:37 Patient left the ED. mb9 Signatures: Dispatcher [employer] BYRONNY Thais Toussaint Irene, RN RN Deandre Mitchell PA PA cp Thais Oglesby, DELON RN armando Corrections: (The following items were deleted from the chart) 19:04 19:02 Chief complaint: Patient states: cough, congestion, fever of 101 at home, throat iw on fire, headaches, chills started Thursday iw
[2023-03-04 21:59] VITALS: TEMP 99.7
[2023-03-04 22:00] VITALS: BP 138/84; O2SAT 100
--- NOTE | 2023-03-04 22:09 | RAD REPORT ---
EXAM DESCRIPTION: [facility] Pa And Lat (2 Views)03/04/2023 8:11 pm CLINICAL HISTORY: COUGH COMPARISON: None. TECHNIQUE: PA and lateral views of the chest. FINDINGS: The lungs are clear. Left basilar atelectasis. No pneumothorax or effusion. The cardiomedi astinal contours are unremarkable. IMPRESSION: No acute cardiopulmonary process.
== END 2023-03-04 21:37 | disposition home or self-care (01) ==
LOC: ER 18:45
DX: R05.9 Cough, unspecified (principal); J02.9 Acute pharyngitis, unspecified; Z20.822 Contact with and (suspected) exposure to COVID-19
CPT/HCPCS: 36415; 71046; 87070; 87081; 87804; 87807; 87811; 99284

== ENCOUNTER 2023-06-02 21:08 | Emergency (ER) | payer BC ==
--- OUTSIDE RECORDS SUMMARY | 2023-06-02 21:12 | XMS REPORT | Continuity of Care Document ---
:1990 Author Organization [facility] t Address [address] [place] [address] [place] [id number] Care Team Providers Name Role Phone PCP, [...] Source Exposure to 2022-07-20 2022-07-30 Not sure [facility] SARS-CoV-2 (event) 00:00:00 08:45:00 Medica l Branch Sex Assigned At [birth year] [facility] [place] 00:00:00 00:00:00 Medical Branch Smoking Status Start Date Stop Date Source Tobacco smoking consumption [facility] unknown Branch Medications Ordered Filled Start [...] 07/30/22 at 0845, MICHAEL oseltamivir 2021-10- No [id number] 75mg Take 1 [facility] 75 mg 08-05 capsule by ity of capsule 00:00: 04:59 mouth in [place] 00 :00 the Medical morning Branch and 1 capsule in the evening. Do all this for 5 days. Vital Signs Vital Name Observation Time Observation Value Comments Source Systolic blood 2022-07-30 13:47:50 113 mm[Hg[facility] Diastolic blood 2022-07-30 13:47:50 82 mm[Hg] [facility] 2022-07-30 13:47:50 113 /min [facility] Body temperature 2022-07-30 13:47:[address] [facility] Respiratory rate 2022-07-30 13:47:50 18 /min [facility] Body weight 2022-07-30 13:29:00 99.791 kg [facility] Oxygen saturation in 2022-07-30 13:29:00 98 /min [facility] Arterial blood by [facility] Pulse oximetry [place] Procedures Procedure Date / Time Performed Performing Clinician Sourc e LIPASE 2022-07-30 14:12:00 Ghassan Amor [facility] COMP. METABOLIC PANEL 2022-07-30 14:12:00 [id number] CBC WITH DIFF 2022-07-30 14:12:00 Ghassan Amor [facility] URINALYSIS 2022-07-30 14:12:00 Ghassan Amor [facility] POCT TEST 2022-07-30 14:11:[address] [facility] XR CHEST 2 VW 2022-07-30 13:57:45 Ghassan Amor [facility] RAPID STREP SCREEN FOR 2022-07-30 13:48:00 Ghassan Amor [facility] GROUP A [facility] RAPID INFLUENZA A/B 2022-07-30 13:48:[address] [facility] COVID-19 (ID NOW RAPID 2022-07-30 13:48:00 Ghassan Amor [facility] TESTING) [facility] NOTICE OF PRIVACY 2022-07-30 13:19:48 Doctor Unassigned, No [facility] Name Medical [place] Encounters Start End Encounter Admission Attending Care Care Encounter Source Date/Time Date/Time Type Type Clinicians Facility Department ID 2022-07-30 2022-07-30 Emergency [facility] [id number] [facility] 08:31:00 11:10:00 Ghassan Hernández [place] [id number] [facility] [id number] [facility] [id number] [facility] 084 Branch 2022-07-30 2022-07-30 Emergency [facility] [id number] 08:31:00 11:10:00 GHASSAN [facility] Results Test Description Test Time Test Comments Results Result Comments Source POCT TEST 2022-07-30 14:11:00 Test Item Value Reference Range Interpretation Comme nts POCT PREG (test code = 1605) negative On board controls acceptable with C Line (test code = 3574) yes POCT PREG LOT # (test code = 3575) [id number] POCT PREG TEST DATE (test code = 3576) 12/03/2023 Lab Interpretation (test code = 57724-9) [facility]
--- NOTE | 2023-06-02 22:33 | ER ---
Nurse's Notes [facility] Name: Laureen Haji Age: 32 yrs Sex: Female : 1990 Arrival Date: 06/02/2023 Time: 21:08 Bed IW1 Private MD: Diagnosis: SARS-associated coronavirus as the cause of diseases classified elsewhere Presentation: 06/02 21:16 Chief complaint: Patient states: son was diagnosed with strep on Thursday and is now cm10 having sore throat, body aches and fever. Tmax- 102f. Coronavirus screen: Vaccine status: Patient reports receiving the 2nd dose of the covid vaccine. Client denies travel out of the [place] in the last 14 days. Ebola Screen: Patient denies travel to an Ebola-affected area in the 21 days before illness onset. No symptoms or risks identified at this time. Initial Sepsis Screen: Does the patient meet any 2 criteria? No. Patient's initial sepsis screen is negative. Does the patient have a suspected source of infection? No. Patient's initial sepsis screen is negative. Risk Assessment: Do you want to hurt yourself or someone else? Patient reports no desire to harm self or others. Onset of symptoms was June 02, 2023. 21:16 Method Of Arrival: Ambulatory cm10 21:16 Acuity: CHIDI 4 cm10 Triage Assessment: 21:41 General: Appears in no apparent distress. comfortable, Behavior is calm, cooperative. cm10 Pain: Complains of pain in generalized. EENT: Reports sore throat. Neuro: No deficits noted. Level of Consciousness is awake, alert, obeys commands, Oriented to person, place, time, situation. Respiratory: No deficits noted. Airway is patent Respiratory effort is even, unlabored, Respiratory pattern is regular, symmetrical. Derm: No deficits noted. Skin is intact, Skin is pink, warm \T\ dry. Musculoskeletal: No deficits noted. Historical: - Allergies: 21:18 No Known Allergies; cm10 - PMHx: 21:18 Hydrocephalus; Kidney stones; UTI; cm10 - PSHx: 21:18 Adenoid excision; section; Tonsillectomy; tubal ligation; cm10 - Immunization history:: Adult Immunizations. - Social history:: Smoking status: Patient denies any tobacco usage or history of. Screenin:[facility] Fall Risk Assessment (Adult) History of falling in the last 3 months, cm10 including since admission No falls in past 3 months (0 pts) Confusion or Disorientation No (0 pts) Intoxicated or Sedated No (0 pts) Impaired Gait No (0 pts) Mobility Assist Device Used No (0 pt) Altered Elimination No (0 pt) Score/Fall Risk Level 0 - 2 = Low Risk Oriented to surroundings, Maintained a safe environment, Hourly rounding (assess needs \T\ fall precautionary measures) done. Abuse screen: Denies threats or abuse. Denies injuries from another. Nutritional screening: No deficits noted. Tuberculosis screening: No symptoms or risk factors identified. Assessment: 22:37 Reassessment: Patient appears in no apparent distress at this time. Respiratory: Airway kl is patent Trachea midline Respiratory effort is even, unlabored, Breath sounds are clear bilaterally. Vital Signs: 21:16 BP 145 / 102; Pulse 96; Resp 18; Temp 98.9; Pulse Ox 99% ; Weight 104.33 kg; Height 5 cm10 ft. 5 in. ; Pain 6/10; 21:16 Body Mass Index 38.27 (104.33 kg, 165.1 cm) cm10 21:16 Pain Scale: Adult cm10 ED Course: 21:11 Patient arrived in ED. kj1 21:15 Elinor Mims FNP-C [facility]. kb 21:15 Darren Lerner MD is Attending Physician. kb 21:18 Triage completed. cm10 21:18 Arm band placed on Patient placed in waiting room. cm10 21:27 Strep Sent. cm10 21:27 COVID-19 SARS RT PCR Sent. cm10 21:42 Patient has correct armband on for positive identification. Provided Education on: N/A. cm10 22:38 No provider procedures requiring assistance completed. Patient did not have IV access kl during this emergency room visit. Administered Medications: 22:37 Drug: Ibuprofen PO 800 mg Route: PO; kl Medication: 21:40 VIS not applicable for this client. cm10 Outcome: 22:32 Discharge ordered by . kb 22:38 Discharged to home ambulatory. kl 22:38 Condition: stable 22:38 Discharge instructions given to patient, Instructed on discharge instructions, follow up and referral plans. Demonstrated understanding of instructions, follow-up care. 22:38 Patient left the ED. kl Signatures: Elinor Mims, Cynthia Irvin, DELON RN Jumana Harris kj1 Irene Hanson RN RN cm10
--- NOTE | 2023-06-02 22:33 | EDPHYS ---
Physician Documentation [facility] Name: Laureen Haji Age: 32 yrs Sex: Female : 1990 Arrival Date: 06/02/2023 Time: 21:08 Bed IW1 Private MD: ED Physician Darren Lerner HPI: 06/02 22:31 This 32 yrs old Female presents to ER via Ambulatory with complaints of Flu kb Symptoms, Sore Throat. 22:31 The patient or guardian reports cough, flu symptoms, low-grade fever, myalgias. Onset: kb The symptoms/episode began/occurred today. Severity of symptoms: At their worst the symptoms were moderate, in the emergency department the symptoms are unchanged. Modifying factors: The symptoms are alleviated by nothing, the symptoms are aggravated by nothing. Associated signs and symptoms: Pertinent positives: fever, sore throat, Pertinent negatives: chest pain, diarrhea, ear ache, nausea, rhinorrhea, vomiting. The patient has not experienced similar symptoms in the past. The patient has not recently seen a physician. Historical: - Allergies: 21:18 No Known Allergies; cm10 - PMHx: 21:18 Hydrocephalus; Kidney stones; UTI; cm10 - PSHx: 21:18 Adenoid excision; section; Tonsillectomy; tubal ligation; cm10 - Immunization history:: Adult Immunizations. - Social history:: Smoking status: Patient denies any tobacco usage or history of. ROS: 22:30 Abdomen/GI: Negative for abdominal pain, nausea, vomiting, diarrhea, and constipation. kb 22:30 Constitutional: Positive for body aches, fever. 22:30 ENT: Positive for sore throat. 22:30 Respiratory: Positive for cough. 22:30 All other systems are negative. Exam: 22:30 Constitutional: This is a well developed, well nourished patient who is awake, alert, kb and in no acute distress. Head/Face: Normocephalic, atraumatic. ENT: Moist Mucous membranes Cardiovascular: Regular rate and rhythm with a normal S1 and S2. No gallops, murmurs, or rubs. No pulse deficits. Respiratory: Respirations even and unlabored. No increased work of breathing. Talking in full sentences Skin: Warm, dry with normal turgor. Normal color. MS/ Extremity: Pulses equal, no cyanosis. Neurovascular intact. Full, normal range of motion. Neuro: Awake and alert, GCS 15, oriented to person, place, time, and situation. Moves all extremities. Normal gait. Vital Signs: 21:16 BP 145 / 102; Pulse 96; Resp 18; Temp 98.9; Pulse Ox 99% ; Weight 104.33 kg; Height 5 cm10 ft. 5 in. ; Pain 6/10; 21:16 Body Mass Index 38.27 (104.33 kg, 165.1 cm) cm10 21:16 Pain Scale: Adult cm10 MDM: 21:15 Patient medically screened. 22:30 Differential diagnosis: flu, covid, strep, uri. Data reviewed: vital signs, nurses notes. Counseling: I had a detailed discussion with the patient and/or guardian regarding the historical points, exam findings, and any diagnostic results supporting the discharge/admit diagnosis, lab results, the need for outpatient follow up, a family practitioner, to return to the emergency department if symptoms worsen or persist or if there are any questions or concerns that arise at home. 22:31 I considered the following discharge prescriptions or medication management in the emergency department I discussed and recommended Over The Counter medications, Antibiotics: At this time antibiotics are not recommended. 06/02 21:18 Order name: COVID-19 SARS RT PCR; Complete Time: 22:32 06/02 21:18 Order name: Strep; Complete Time: 22:32 06/02 22:09 Order name: Throat Culture EDMS Administered Medications: 22:37 Drug: Ibuprofen PO 800 mg Route: PO; Disposition: 06/03 00:37 Co-signature as Attending Physician, Darren Lerner MD I agree with the assessment sp4 and plan of care. I reviewed the patient's care provided by the Advanced Practice Provider and agree with the diagnosis and treatment plan. Disposition Summary: 06/02/23 22:32 Discharge Ordered Location: Home Condition: Stable Diagnosis - SARS-associated coronavirus as the cause of diseases classified elsewhere Followup: kb - With: Emergency Department - When: As needed - Reason: Worsening of condition Followup: - With: Private Physician - When: 2 - 3 days - Reason: Recheck today's complaints, Continuance of care, Re-evaluation by your physician Discharge Instructions: - Discharge Summary Sheet kb - COVID-19 kb - Viral Illness, Adult kb Forms: - Medication Reconciliation Form kb - Thank You Letter kb - Antibiotic Education kb - Prescription Opioid Use kb - Patient Portal Instructions kb - Leadership Thank You Letter kb Signatures: Dispatcher [employer] Elinor Rodriguez, FRENCH BINDER-C FRENCH BINDER-Cynthia Lew, RN RN Darren Marin MD MD sp4 Irene Hanson RN RN cm10
[2023-06-02] MEDS ORDERED: IBUPROFEN 400 MG TAB ONE (22:46)
[2023-06-03 00:36] VITALS: BP 145/102; TEMP 98.9; O2SAT 99
== END 2023-06-02 22:38 | disposition home or self-care (01) ==
LOC: ER 21:08
DX: U07.1 COVID-19 (principal)
CPT/HCPCS: 87070; 87081; 87635

== ENCOUNTER 2023-08-31 08:54 | Emergency (ER) | payer BC ==
--- OUTSIDE RECORDS SUMMARY | 2023-08-31 08:57 | XMS REPORT | Continuity of Care Document ---
:1990 Author Organization [facility] t Address [address] [place] [address] [place] [id number] Care Team Providers Name Role Phone PCP, [...] rs active active ity of problems problems [facility] Allergies, Adverse Reactions, Alerts Allergy Allergy Status Severity Reaction(s) Onset Inactive Treating Comm ents Source Name Type Date Date Clinician NO KNOWN Drug Active Univers ALLERGIE Class ity of S [facility] Social History Social Habit Start Date Stop Date Quantity Comments Source Exposure to 2022-07-20 2022-07-30 Not sure [facility] SARS-CoV-2 (event) 00:00:00 08:45:00 Medica l Branch Sex Assigned At [birth year] [facility] y of [place] 00:00:00 00:00:00 Medical Branch Smoking Status Start Date Stop Date Source Tobacco smoking consumption [facility] unknown Branch Medications Ordered Filled Start [...] 07/30/22 at 0845, MICHAEL oseltamivir 2021-10- No [id number] 75mg Take 1 Univers 75 mg 08-05 capsule by ity of capsule 00:00: 04:59 mouth in [place] 00 :00 the Medical morning Branch and 1 capsule in the evening. Do all this for 5 days. Vital Signs Vital Name Observation Time Observation Value Comments Source Systolic blood 2022-07-30 13:47:50 113 mm[Hg[facility] Diastolic blood 2022-07-30 13:47:50 82 mm[Hg] [facility] 2022-07-30 13:47:50 113 /min [facility] Body temperature 2022-07-30 13:47:50 37 Sarah [facility] Respiratory rate 2022-07-30 13:47:50 18 /min [facility] Body weight 2022-07-30 13:29:00 99.791 kg [facility] Oxygen saturation in 2022-07-30 13:29:00 98 /min [facility] Arterial blood by [facility] Pulse oximetry [place] Procedures Procedure Date / Time Performed Performing Clinician Sourc e LIPASE 2022-07-30 14:12:00 Ghassan Amor [facility] COMP. METABOLIC PANEL 2022-07-30 14:12:00 [id number] CBC WITH DIFF 2022-07-30 14:12:00 Ghassan Amor [facility] URINALYSIS 2022-07-30 14:12:00 Ghassan Amor [facility] POCT TEST 2022-07-30 14:11:00 Ghassan Amor [facility] XR CHEST 2 VW 2022-07-30 13:57:45 Ghassan Amor [facility] RAPID STREP SCREEN FOR 2022-07-30 13:48:00 Ghassan Amor [facility] GROUP A [facility] RAPID INFLUENZA A/B 2022-07-30 13:48:00 Ghassan Amor [facility] COVID-19 (ID NOW RAPID 2022-07-30 13:48:00 Ghassan Amor [facility] TESTING) [facility] NOTICE OF PRIVACY 2022-07-30 13:19:48 Doctor Unassigned, No [facility] PRACTICES Name Medical [place] Encounters Start End Encounter Admission Attending Care Care Encounter Source Date/Time Date/Time Type Type Clinicians Facility Department ID 2022-07-30 2022-07-30 Emergency [facility] [id number] Univers 08:31:00 11:10:00 Ghassan Hernández [place] [id number] [facility] [id number] [facility] [id number] [facility] 084 Branch 2022-07-30 2022-07-30 [facility] [id number] Univers 08:31:00 11:10:00 GHASSAN [facility] Results Test Description Test Time Test Comments Results Result Comments Source POCT TEST 2022-07-30 14:11:00 Test Item Value Reference Range Interpretation Comme nts POCT PREG (test code = 1605) negative On board controls acceptable with C Line (test code = 3574) yes POCT PREG LOT # (test code = 3575) [id number] POCT PREG TEST DATE (test code = 3576) 12/03/2023 Lab Interpretation (test code = 31881-8) Normal [facility]
[2023-08-31] MEDS ORDERED: ONDANSETRON 4 MG/2 ML VIAL ONE (09:58)
[2023-08-31] MEDS ORDERED: KETOROLAC 30 MG/ML INJ ONE (09:58)
[2023-08-31] MEDS ORDERED: MORPHINE 4 MG/ML SYR ONE (09:58)
[2023-08-31] MEDS ORDERED: NA CHLORIDE 0.9% 1,000 ML ONE (09:59)
[2023-08-31] MEDS ORDERED: FAMOTIDINE 20 MG/2 ML VIAL IV ONE (09:59)
[2023-08-31 10:02] LABS: Absolute Lymphocytes (CBC) 1.8 K/uL (0.7-4.9); Lymphocytes % 27.3 % (15.3-44.8); MCV 81.6 fL (80-100); MPV 7.8 fL (7.6-11.3); Platelets 281 thou/uL (152-406); RBC Red Blood Cell Count 4.66 M/uL (3.86-4.86)
[2023-08-31 10:09] LABS: Specific Gravity 1.007 (1.005-1.030)
[2023-08-31 10:22] LABS: Specific Gravity 1.007 (1.005-1.030); Transitional Epithelial <5 /HPF (None Seen); Urine Bacteria <20 /HPF (<20); Urine Bilirubin NEGATIVE (Negative); Urine Blood Negative (Negative); Urine Clarity Extremely Turbid (Clear); Urine Color Light-Yellow (Yellow); Urine Glucose NEGATIVE (Negative); Urine Protein NEGATIVE (Negative); Urine RBC <5 /HPF (None Seen); Urine Urobilinogen Normal (Normal); Urine pH 6.5 (5.0-7.0)
--- NOTE | 2023-08-31 10:31 | RAD REPORT ---
EXAM DESCRIPTION: CTAbdomen Pelvis W Contrast - 08/31/2023 9:57 am CLINICAL HISTORY: Abdominal pain. ABD PAIN COMPARISON: Abdomen Pelvis W Contrast dated 02/09/2023; Abdomen Pelvis W Contrast dated 04/30/2022 TECHNIQUE: Biphasic CT imaging of the abdomen and pelvis was performed with 100 ml non-ionic IV cont rast. All CT scans are performed using dose optimization technique as appropriate and may include automated exposure control or mA/KV adjustment according to patient size. FINDINGS: Mild linear atelectasis is seen in the right lung base.Small hiatal hernia. The liver, spleen, pancreas, adrenal glands and right kidney are within normal limits. Tiny punctate calculus left kidney calices. No bowel obstruction, free air, free fluid or abscess. The appendix is not identified as a discrete structure, however, no secondary findings of appendicitis are identified. No evidence of significan t lymphadenopathy. Urinary bladder appears mildly thickened. 4.7 cm left ovarian cystic lesion. No suspicious bony findings. IMPRESSION: Punctate caliceal stones left kidney without hydronephrosis. 4.7 cm left ovarian cystic lesion, indeterminate but favored to be physiologic/benign. Urinary bladder wall thickening is questionable for cystitis. Correlation with the urinalysis suggest ed.
[2023-08-31 10:37] LABS: Albumin 3.5 g/dL (3.4-5.0); Bilirubin Total 0.2 mg/dL (0.2-1.0); Potassium 4.1 mEq/L (3.5-5.1); Protein, Total 7.1 g/dL (6.4-8.2)
--- NOTE | 2023-08-31 10:44 | EDPHYS ---
Physician Documentation [facility] Name: Laureen Haji Age: 33 yrs Sex: Female : 1990 Arrival Date: 08/31/2023 Time: 08:54 Bed 17 Private MD: ED Physician Raul Robertson HPI: 08/31 09:50 This 33 yrs old Female presents to ER via Wheelchair with complaints of snw Abdominal Pain, Vomiting/Diarrhea. 09:50 The patient presents with abdominal pain in the left upper quadrant, in the left lower snw quadrant, left flank. Onset: The symptoms/episode began/occurred suddenly, 3 day(s) ago, and became worse today. The symptoms radiate to the left flank. The symptoms are described as sharp. Severity of pain: At its worst the pain was severe. It is unknown whether or not the patient has had similar symptoms in the past. The patient has not recently seen a physician. Historical: - Allergies: 09:18 No Known Allergies; hb - PMHx: 09:18 Hydrocephalus; Kidney stones; UTI; hb - PSHx: 09:18 Adenoid excision; section; Tonsillectomy; tubal ligation; hb - Immunization history:: Adult Immunizations unknown. - Social history:: Smoking status: unknown. ROS: 09:47 Constitutional: Negative for fever, chills, and weight loss, Eyes: Negative for injury, snw pain, redness, and discharge, ENT: Negative for injury, pain, and discharge, Neck: Negative for injury, pain, and swelling, Cardiovascular: Negative for chest pain, palpitations, and edema, Respiratory: Negative for shortness of breath, cough, wheezing, and pleuritic chest pain, Back: Negative for injury. + left flank pain : Negative for injury, bleeding, discharge, and swelling, MS/Extremity: Negative for injury and deformity, Skin: Negative for injury, rash, and discoloration, Neuro: Negative for headache, weakness, numbness, tingling, and seizure, Psych: Negative for depression, anxiety, suicide ideation, homicidal ideation, and hallucinations, 09:47 Abdomen/GI: Positive for abdominal pain, nausea, Exam: 09:45 Constitutional: This is a well developed, well nourished patient who is awake, alert, snw and in no acute distress. Head/Face: Normocephalic, atraumatic. Eyes: Pupils equal round and reactive to light, extra-ocular motions intact. Lids and lashes normal. Conjunctiva and sclera are non-icteric and not injected. Cornea within normal limits. Periorbital areas with no swelling, redness, or edema. ENT: Nares patent. No nasal discharge, no septal abnormalities noted. Tympanic membranes are normal and external auditory canals are clear. Oropharynx with no redness, swelling, or masses, exudates, or evidence of obstruction, uvula midline. Mucous membranes moist. Neck: Trachea midline, no thyromegaly or masses palpated, and no cervical lymphadenopathy. Supple, full range of motion without nuchal rigidity, or vertebral point tenderness. No Meningismus. Chest/axilla: Normal chest wall appearance and motion. Nontender with no deformity. No lesions are appreciated. Cardiovascular: Regular rate and rhythm with a normal S1 and S2. No gallops, murmurs, or rubs. Normal PMI, no JVD. No pulse deficits. Respiratory: Lungs have equal breath sounds bilaterally, clear to auscultation and percussion. No rales, rhonchi or wheezes noted. No increased work of breathing, no retractions or nasal flaring. 09:45 Skin: Warm, dry with normal turgor. Normal color with no rashes, no lesions, and no evidence of cellulitis. MS/ Extremity: Pulses equal, no cyanosis. Neurovascular intact. Full, normal range of motion. Neuro: Awake and alert, GCS 15, oriented to person, place, time, and situation. Cranial nerves II-XII grossly intact. Motor strength 5/5 in all extremities. Sensory grossly intact. Cerebellar exam normal. Normal gait. Psych: Awake, alert, with orientation to person, place and time. Behavior, mood, and affect are within normal limits. 09:45 Abdomen/GI: Inspection: abdomen appears normal, Bowel sounds: normal, Palpation: moderate abdominal tenderness, in the suprapubic area, posterior aspect of left lateral abdomen, left upper quadrant and left lower quadrant, 09:45 Back: pain, that is moderate, of the left mid back, ROM is normal, normal spinal alignment noted, CVA tenderness, that is moderate, is noted on the left, Vital Signs: 09:17 BP 123 / 75; Pulse 75; Resp 16; Temp 98.6(O); Pulse Ox 97% on R/A; Weight 95.25 kg; hb Height 5 ft. 5 in. ; Pain 10/10; 10:10 BP 122 / 65; Pulse 54; Resp 16; Pulse Ox 96% ; Pain 10/10; nj1 11:10 BP 144 / 96; Pulse 59; Resp 16; Pulse Ox 98% on R/A; Pain 8/10; nj1 12:27 BP 111 / 78; Pulse 59; Resp 16; Pulse Ox 95% ; Pain 7/10; nj1 09:17 Body Mass Index 34.95 (95.25 kg, 165.1 cm) hb 09:17 Pain Scale: Adult hb 10:10 Pain Scale: Adult nj1 11:10 Pain Scale: Adult nj1 12:27 Pain Scale: Adult nj1 MDM: 09:16 Patient medically screened. snw 12:11 Differential diagnosis: Dysmenorrhea, non-specific abd pain, Ovarian Torsion, snw Pyelonephritis, Ureterolithiasis, urinary tract infection. Data reviewed: vital signs, nurses notes, lab test result(s), radiologic studies, CT scan. I considered the following discharge prescriptions or medication management in the emergency department Medications were administered in the Emergency Department. See MAR. Counseling: I had a detailed discussion with the patient and/or guardian regarding the historical points, exam findings, and any diagnostic results supporting the discharge/admit diagnosis, the presence of at least one elevated blood pressure reading (>120/80) during this emergency department visit, lab results, radiology results, the need for outpatient follow up, for definitive care, to return to the emergency department if symptoms worsen or persist or if there are any questions or concerns that arise at home. Response to treatment: the patient's symptoms have markedly improved after treatment. Special discussion: Based on the history and exam findings, there is no indication for further emergent testing or inpatient evaluation. I discussed with the patient/guardian the need to see the OB Gyne specialist for further evaluation of the symptoms. I discussed with the patient/guardian the need to see the primary care provider for further evaluation of the symptoms. 08/31 08:58 Order name: COVID-19/FLU A+B; Complete Time: 10:46 snw 08/31 08:58 Order name: Urine W/Microscopic (UAM); Complete Time: 10:24 snw 08/31 09:22 Order name: CBC with Diff; Complete Time: 10:09 snw 08/31 09:22 Order name: CMP; Complete Time: 10:41 snw 08/31 09:22 Order name: Lipase; Complete Time: 10:41 snw 08/31 09:22 Order name: Test, Urine; Complete Time: 10:14 snw 08/31 09:22 Order name: Blood Culture Adult (2) snw 08/31 09:22 Order name: Urine Culture snw 08/31 09:22 Order name: CT Abd/Pelvis - IV Contrast Only; Complete Time: 10:32 snw 08/31 09:22 Order name: IV Saline Lock; Complete Time: 09:52 snw 08/31 09:22 Order name: Labs collected and sent; Complete Time: 09:52 snw Administered Medications: 10:10 Drug: NS 0.9% IV 1000 ml IV at 1 bolus Per protocol; 1000 mL bolus Route: IV; Rate: 1 nj1 bolus; Site: right wrist; 12:27 Follow up: Response: No adverse reaction; IV Status: Completed infusion; IV Intake: nj1 1000ml 10:10 Drug: Ondansetron IVP 4 mg IVP once; over 2 minutes Route: IVP; Site: right wrist; nj1 11:11 Follow up: Response: No adverse reaction; Nausea is decreased nj1 10:12 Drug: Famotidine IVP 20 mg IVP once; dilute with 10 mL 0.9% NaCl; give over 2 minutes nj1 Route: IVP; Site: right wrist; 11:11 Follow up: Response: No adverse reaction nj1 10:14 Drug: TORadol - Ketorolac IVP 15 mg IVP once Route: IVP; Site: right wrist; nj1 11:12 Follow up: Response: No adverse reaction; Pain is decreased nj1 10:15 Drug: morphine IVP or IV 4 mg IVP once over 4 mins Route: IVP; Infused Over: 4 mins; nj1 Site: right wrist; 11:14 Follow up: Response: No adverse reaction; Pain is decreased nj1 12:25 Drug: Rocephin IV 1 grams IV at calculated rate once; Given slow IV push per pharmacy nj1 instructions Route: IV; Rate: calculated rate; Site: right wrist; Disposition: 12:12 I was immediately available on-site in the Emergency Department for consultation in the ms3 care of the patient. Disposition Summary: 08/31/23 12:12 Discharge Ordered Notes: Location: Home(08/31/23 12:12) snw Condition: Stable(08/31/23 12:12) snw Diagnosis - Unspecified renal colic snw - Other ovarian cysts snw - UTI/ Urinary tract infection, site not specified snw Followup: snw - With: Emergency Department - When: As needed - Reason: Worsening of condition Followup: snw - With: Private Physician - When: 2 - 3 days - Reason: Recheck today's complaints, Continuance of care, Re-evaluation by your physician Discharge Instructions: - Discharge Summary Sheet snw - Dysuria snw - Renal Colic snw - Urinary Tract Infection, Adult snw - Dietary Guidelines to Help Prevent Kidney Stones snw - Rehydration, Adult snw Forms: - Work release form snw - Medication Reconciliation Form snw - Thank You Letter snw - Antibiotic Education snw - Prescription Opioid Use snw - Patient Portal Instructions snw - Leadership Thank You Letter snw Prescriptions: - Augmentin 875-125 mg Oral Tablet - take 1 tablet ORAL route every 12 hours for 10 days; 20 tablet; Refills: 0, snw Product Selection Permitted - Diclofenac Sodium 75 mg Oral Tablet Sustained Release - take 1 tablet ORAL route 2 times per day; 30 tablet; Refills: 0, Product snw Selection Permitted - promethazine 25 mg Oral Tablet - take 1 tablet ORAL route every 6 hours As needed; 20 tablet; Refills: 0, snw Product Selection Permitted Signatures: Dispatcher [employer] EDME Jossie Clarke, MINE CAPTAIN-C MINE CAPTAIN-Csnw Verónica Alvarado, RN RN Raul Marcelino DO DO ms3 Kendra Queen, RN RN nj1 Corrections: (The following items were deleted from the chart) 10:44 10:43 Home snw snw 10:44 10:43 Stable snw snw 10:44 10:43 Contusion of left lower leg snw snw 10:44 10:43 hematoma snw snw
--- NOTE | 2023-08-31 10:44 | ER ---
Nurse's Notes [facility] Name: Laureen Haji Age: 33 yrs Sex: Female : 1990 Arrival Date: 08/31/2023 Time: 08:54 Bed 17 Private MD: Diagnosis: Unspecified renal colic;Other ovarian cysts;UTI/ Urinary tract infection, site not specified Presentation: 08/31 09:17 Chief complaint: Left flank pain, burning with urination, and nausea x 2 days. Hx of hb kidney stones. Coronavirus screen: At this time, the client does not indicate any symptoms associated with coronavirus-19. Ebola Screen: No symptoms or risks identified at this time. Initial Sepsis Screen: Does the patient meet any 2 criteria? No. Patient's initial sepsis screen is negative. Does the patient have a suspected source of infection? No. Patient's initial sepsis screen is negative. Risk Assessment: Do you want to hurt yourself or someone else? Patient reports no desire to harm self or others. Onset of symptoms was August 30, 2023. 09:17 Method Of Arrival: Wheelchair hb 09:17 Acuity: CHIDI 3 hb Historical: - Allergies: 09:18 No Known Allergies; hb - PMHx: 09:18 Hydrocephalus; Kidney stones; UTI; hb - PSHx: 09:18 Adenoid excision; section; Tonsillectomy; tubal ligation; hb - Immunization history:: Adult Immunizations unknown. - Social history:: Smoking status: unknown. Screenin:25 [facility] ED Fall Risk Assessment (Adult) Score/Fall Risk Level 0 - 2 = Low Risk nj1 Oriented to surroundings, Maintained a safe environment, Hourly rounding (assess needs \T\ fall precautionary measures) done. Abuse screen: Denies threats or abuse. Denies injuries from another. Nutritional screening: No deficits noted. Tuberculosis screening: No symptoms or risk factors identified. Assessment: 10:10 General: Appears in no apparent distress. comfortable, Behavior is calm, cooperative, nj1 appropriate for age. Pain: Complains of pain in left lower quadrant Pain radiates to back Pain currently is 10 out of 10 on a pain scale. 10:10 Neuro: Level of Consciousness is awake, alert, obeys commands, Oriented to person, nj1 place, time, situation. Cardiovascular: Patient's skin is warm and dry. Respiratory: Airway is patent Respiratory effort is even, unlabored. GI: Reports lower abdominal pain, diarrhea, nausea. 11:14 Reassessment: Patient appears in no apparent distress at this time. Patient and/or nj1 family updated on plan of care and expected duration. Pain level reassessed. Patient is alert, oriented x 3, equal unlabored respirations, skin warm/dry/pink. 12:28 Reassessment: Patient appears in no apparent distress at this time. Patient and/or nj1 family updated on plan of care and expected duration. Pain level reassessed. Patient is alert, oriented x 3, equal unlabored respirations, skin warm/dry/pink. Vital Signs: 09:17 BP 123 / 75; Pulse 75; Resp 16; Temp 98.6(O); Pulse Ox 97% on R/A; Weight 95.25 kg; hb Height 5 ft. 5 in. ; Pain 10/10; 10:10 BP 122 / 65; Pulse 54; Resp 16; Pulse Ox 96% ; Pain 10/10; nj1 11:10 BP 144 / 96; Pulse 59; Resp 16; Pulse Ox 98% on R/A; Pain 8/10; nj1 12:27 BP 111 / 78; Pulse 59; Resp 16; Pulse Ox 95% ; Pain 7/10; nj1 09:17 Body Mass Index 34.95 (95.25 kg, 165.1 cm) hb 09:17 Pain Scale: Adult hb 10:10 Pain Scale: Adult nj1 11:10 Pain Scale: Adult nj1 12:27 Pain Scale: Adult nj1 ED Course: 08:56 Patient arrived in ED. mr 08:57 Jossie Clarke, ALISSA-C is PHCP. snw 08:57 Raul Robertson DO is Attending Physician. snw 09:18 Triage completed. hb 09:19 Swapna Robertson, RN is Primary Nurse. ld1 09:52 Urine Culture Sent. bc6 09:52 Blood Culture Adult (2) Sent. bc6 09:52 CBC with Diff Sent. bc6 09:52 CMP Sent. bc6 09:52 Lipase Sent. bc6 09:52 Test, Urine Sent. bc6 09:52 Urine W/Microscopic (UAM) Sent. bc6 09:52 COVID-19/FLU A+B Sent. bc6 09:52 Inserted saline lock: 20 gauge in right wrist, using aseptic technique. Blood collected.bc6 09:58 CT Abd/Pelvis - IV Contrast Only In Process Unspecified. EDMS 10:26 Arm band placed on. nj1 10:26 Patient has correct armband on for positive identification. Bed in low position. Call nj1 light in reach. Adult w/ patient. Provided Education on: call light, fall precautions. 12:28 No provider procedures requiring assistance completed. nj1 13:01 IV discontinued, intact, bleeding controlled, No redness/swelling at site. ld1 Administered Medications: 10:10 Drug: NS 0.9% IV 1000 ml IV at 1 bolus Per protocol; 1000 mL bolus Route: IV; Rate: 1 nj1 bolus; Site: right wrist; 12:27 Follow up: Response: No adverse reaction; IV Status: Completed infusion; IV Intake: nj1 1000ml 10:10 Drug: Ondansetron IVP 4 mg IVP once; over 2 minutes Route: IVP; Site: right wrist; nj1 11:11 Follow up: Response: No adverse reaction; Nausea is decreased nj1 10:12 Drug: Famotidine IVP 20 mg IVP once; dilute with 10 mL 0.9% NaCl; give over 2 minutes nj1 Route: IVP; Site: right wrist; 11:11 Follow up: Response: No adverse reaction nj1 10:14 Drug: TORadol - Ketorolac IVP 15 mg IVP once Route: IVP; Site: right wrist; nj1 11:12 Follow up: Response: No adverse reaction; Pain is decreased nj1 10:15 Drug: morphine IVP or IV 4 mg IVP once over 4 mins Route: IVP; Infused Over: 4 mins; nj1 Site: right wrist; 11:14 Follow up: Response: No adverse reaction; Pain is decreased nj1 12:25 Drug: Rocephin IV 1 grams IV at calculated rate once; Given slow IV push per pharmacy nj1 instructions Route: IV; Rate: calculated rate; Site: right wrist; Medication: 12:28 VIS not applicable for this client. nj1 Intake: 12:27 IV: 1000ml; Total: 1000ml. nj1 Outcome: 10:43 Discharge ordered by MD. colón 12:12 Discharge ordered by MD. colón 13:01 Discharged to home ambulatory, ld1 13:01 Condition: stable 13:01 Discharge instructions given to patient, family, Instructed on discharge instructions, follow up and referral plans. medication usage, Demonstrated understanding of instructions, follow-up care, medications, Prescriptions given X 3, 13:01 Patient left the ED. ld1 Signatures: Dispatcher [employer] EDMS Jossie Clarke, DOOR SLINGER-C DOOR SLINGER-Csnw [place], [place], Reg Reg mr Verónica Alvarado RN DELON Swapna Robertson RN RN ld1 Michelle Frank 6 Kendra Queen RN RN nj1
[2023-08-31 10:45] LABS: SARS-COV-2 RT PCR NEGATIVE (NEGATIVE)
[2023-08-31] MEDS ORDERED: NA CHLORIDE 0.9% 50 ML ONE (12:27)
[2023-08-31] MEDS ORDERED: CEFTRIAXONE 1000 MG/VIAL ONE (12:27)
[2023-08-31 13:57] VITALS: TEMP 98.6
[2023-08-31 14:01] VITALS: BP 111/78; O2SAT 95
== END 2023-08-31 13:01 | disposition home or self-care (01) ==
LOC: ER 08:54
DX: N23 Unspecified renal colic (principal); N83.209 Unspecified ovarian cyst, unspecified side; N39.0 Urinary tract infection, site not specified; Z11.52 Encounter for screening for COVID-19
CPT/HCPCS: 96361; 87040 ×2; 87088; 85025; 81001; 87086; 36415; 81025; 83690; 80053; 0240U; 74177; 96375; 96374; 99284; Q9967; J2405; J7030; J0696